=== PATIENT | male | born 2000 | race Caucasian/White ===

== ENCOUNTER 2022-08-12 07:33 | Emergency (ER) | payer BC, SELFPAY ==
[2022-08-12 07:49] VITALS: BP 130/88; PULSE 92; O2SAT 97
[2022-08-12 07:54] VITALS: BP 116/72; PULSE 89; RESP 18; TEMP 36.7; O2SAT 96; BMI 25.8
--- NOTE | 2022-08-12 08:07 | ED_ITS ---
HPI - General Adult General Chief complaint: Psychiatric Symptoms Stated complaint: SEC 12,CRISIS, COVID LIKE SX PER EMS Time Seen by Provider: 08/12/22 08:05 Source: patient, family (father) and EMS Mode of arrival: EMS Limitations: no limitations History of Present Illness HPI narrative: Patient is a 22 year old assigned male at with a history of GERD presenting to the emergency department today with difficulty sleeping, COVID exposure, and a GERD flare. Patient states that over the last 2 days he has been unable to sleep and has been feeling generally unwell. Patient states that he became very frustrated last night and had vague suicidal thoughts but now does not have them. Patient denies any dizziness, lightheadedness, abdominal pain, fever, chills, blurry vision, double vision, loss of vision, chest pain, difficulty breathing, shortness of breath, back pain, night sweats, pain with urination, increased urinary frequency, increased urinary urgency, blood in his urine or stool, syncope or a near syncopal episode, recent trauma or falls, bowel incontinence, bladder incontinence, bowel retention, bladder retention, or any other complaints at this time. Onset (ago): day(s) (2) Severity: mild Severity scale (1-10): 2 Relieving factors: none Exacerbating factors: none Associated symptoms: nausea/vomiting Treatments prior to arrival: none Related Data Previous Rx's Medication Instructions Recorded aluminum-mag hydroxide-simethicone 5 ml PO 5XD PRN indigestion #355 mL 08/12/22 200 mg-200 mg-20 mg/5 mL oral susp (Maalox Advanced) lidocaine HCl 2 % mucosal solution 1.2 ml PO BID PRN pain #100 mL 08/12/22 (Lidocaine Viscous) Allergies Allergy/AdvReac Type Severity Reaction Status Date / Time No Known Allergies Allergy Verified 08/12/22 08:42 [No Known Allergies*] Review of Systems Constitutional: Constitutional: Reports no additional constitutional complaints, Denies chills, Denies fever(s) and Denies night sweats Eyes: Eyes: Reports no additional eye complaints, Denies blurry vision, Denies change in vision, Denies diplopia, Denies eye discharge, Denies loss of vision and Denies eye pain ENT: Denies dizziness Cardiovascular: Cardiovascular: Reports no additional cardiovascular complaints, Denies chest pain, Denies lightheadedness, Denies Loss of Conscio usness and Denies dyspnea Respiratory: Respiratory: Reports no additional respiratory complaints, Reports cough and Denies dyspnea Gastrointestinal: Gastrointestinal: Reports no additional gastrointestinal complaints, Denies abdominal pain, Denies melena, Denies hematochezia, Denies change in bowel habits, Denies change in stool character and Reports nausea Genitourinary: Genitourinary: Reports no additional male genitourinary complai nts, Denies hematuria, Denies oliguria, Denies difficulty urinating, Denies dysuria, Denies urinary frequency, Denies urinary hesitancy, Denies urinary incontinence and Denies urinary urgency Musculoskeletal: Musculoskeletal: Reports no additional musculoskeletal complaints, Denies numbness and Denies tingling Neurologic: Denies dizziness, Denies loss of vision, Denies numbness and Denies tingling Psychiatric: Psychiatric: Reports no additional psychiatric complaints Endocrine: Endocrine: Reports no additional endocrine complaints Hematologic/Lymphatic: Hematologic/Lymphatic: Reports no additional hematologic/lymphatic complaints Allergic/Immunologic: Allergic/Immunologic: Reports no additional allergic/immunologic complaints PMFSH Past Medical History Attestation statement: The following information was validated with the patient. (all information validated with the patient's father) Source: old records reviewed, obtained from family (patient's father) and nursing notes reviewed Social History Social History Alcohol intake: never Smoked in Last 30 Days: No Use of substances other than those prescribed or required for medical reasons: Yes Substance Use Type: Marijuana Substance Use Frequency: Occasionally Advance Directives: No Advance Directives Information Provided: No Healthcare Proxy: No Guardian: No Physical Exam ED Vital Signs: Vital Signs - 24 hr 08/12/22 07:54 Temperature 98.1 F Pulse Rate 89 Respiratory Rate 18 Blood Pressure 116/72 Pulse Oximetry 96 Oxygen Delivery Method Room Air BMI result Body Mass Index 25.8 Const General: cooperative, no acute distress, alert and awake Nutritional Appearance: well nourished Orientation/consciousness: patient oriented x3 Limitations: no limitations HENMT Head: Yes normal to inspection and Yes atraumatic Ears: hearing grossly normal bilaterally and external ears normal General nose exam: Normal external nose present, no nasal discharge noted and no epistaxis Face and sinus: Yes normal facial exam, No abrasion and No laceration Mouth: Normal oral and palatal mucosa present, no drooling and no muffled voice Eyes General: appearance normal, both eyes and all related structures Periorbital: periorbital findings normal Eyelids: Yes eyelids normal Conjunctivae: conjunctivae normal Pupils: Equal, round and reactive pupils present EOM: EOMs intact bilaterally Neck Neck: Yes normal visual inspection, Yes full ROM and Yes no lymphadenopathy Chest Chest palpation & inspection: normal inspection of the chest Resp Effort & Inspection: normal respiratory effort and able to speak in complete sentences Auscultation: clear to auscultation bilaterally Cardio Rate: regular rate Rhythm: regular rhythm GI Inspection: Yes normal to inspection Palpation (GI): Soft to palpation, not firm, nontender, no guarding and not rigid Neuro General: patient oriented x3 and moves all extremities Cranial nerves: Yes Equal, round and reactive pupils present Cognition (Neuro): normal cognition Motor exam (neuro): 5/5 motor strength present throughout Sensory Exam: Normal double simultaneous stimulation for sensation Coordination: [id number] test normal Extrem General: Yes normal to inspection, Yes full ROM and Yes capillary refill normal Psych Appearance: grossly normal Mental Status: mental status grossly normal Affect: normal affect Attitude: cooperative Thought process: Normal thought process present Thought content: Normal thought content present Insight: Good insight present (Psych) Medications Administered Discontinued Medications Generic Name Dose Route Start Last Admin Trade Name Ale PRN Reason Stop Dose Admin Lidocaine HCl 15 ml 08/12/22 08:16 08/12/22 08:26 Lidocaine Hcl Viscous 2 % 15 Ml Solution MUCOUS MEM 08/12/22 08:17 15 ml ONCE ONE Administration Omeprazole 40 mg 08/12/22 08:16 08/12/22 08:26 Omeprazole 40 Mg Capsule.Dr VERAS 08/12/22 08:17 40 mg ONCE ONE Administration Medical Decision Making Medical Decision Making [facility] Narrative: Patient is a 22 year old assigned male at with a history of GERD presenting to the emergency department today with feeling generally unwell and resolved SI. Patient's physical exam was unremarkable. Patient's blood work was unremarkable. Patient's COVID-19 test was positive. I explained my physical exam findings as well as all test results to the patient and the patient's father. I answered all questions asked by the patient and the patient's father. Patient received PO Maalox and viscous lidocaine which he stated helped his GERD symptoms significantly. CARE team evaluated the patient and recommended discharge. I stressed the importance of the patient taking his medication as prescribed. I stressed the importance of the patient following up with his primary care provider and a GI specialist. I stressed the importance of the patient returning to the emergency department immediately if his symptoms were to worsen or if he were to develop any dizziness, shortness of breath, difficulty breathing, chest pain, blurry vision, loss of vision, nausea, vomiting, abdominal pain, fever, chills, back pain, or any other complaints. Patient and the patient's father verbalized agreement and understanding with this treatment plan and discharge. Differential Diagnosis Differential Diagnoses: The differential diagnosis associated with the presentation includes COVID-19, GERD Lab Data MDM Lab Attestation statement: I reviewed the patient's lab results. 08/12/22 08:57 08/12/22 08:57 Labs: Lab Results 08/12/22 08/12/22 08/12/22 Range/Units 08:17 08:17 08:57 WBC 4.5 L (4.8-10.8) X10*3/uL RBC 4.97 (4.60-5.80) X10*6/uL Hgb 15.6 (14.0-18.0) g/dl Hct 45.0 (42.0-52.0) % MCV 90.5 (80.0-98.0) fL MCH 31.4 (27.0-33.0) pg MCHC 34.7 (31.0-36.0) g/dl RDW 12.6 (11.0-16.0) % Plt Count 100 L (160-400) X10*3/uL MPV 12.3 (9.4-12.4) fL Immature Gran % (Auto) 0.4 (0.0-0.4) % Neut % (Auto) 68.0 (45-73) % Lymph % (Auto) 15.4 L (20-40) % [place] % (Auto) 15.8 H (2-11) % Eos % (Auto) 0.2 (0-4) % Baso % (Auto) 0.2 (0-2) % Lymph # (Auto) 0.7 L (1.2-4.9) X10*3/uL [place] # (Auto) 0.7 (0.1-1.2) X10*3/uL Eos # (Auto) 0.0 (0.0-0.4) X10*3/uL Baso # (Auto) 0.0 (0.0-0.2) X10*3/uL Abs Immat Gran (auto) 0.02 (0.00-0.03) X10*3/uL Absolute Neuts (auto) 3.0 (2.0-8.3) x10*3/uL Absolute Nucleated RBC 0.000 (0.0-0.012) X10*3/uL Nucleated RBC % (auto) 0.0 (0.0-0.2) /100WBC Sodium (135-145) mmol/L Potassium (3.3-5.1) mmol/L Chloride (96-108) mmol/L Carbon Dioxide (22-29) mmol/L Anion Gap (12-20) BUN (9-16) mg/dL Creatinine (0.5-1.4) mg/dL Estim Creat Clear Calc Estimated GFR Random Glucose (60-115) mg/dL Calcium (8.4-10.2) mg/dL Magnesium (1.6-2.6) mg/dL Total Bilirubin (0.0-1.0) mg/dL AST (5-37) U/L ALT (0-40) U/L Alkaline Phosphatase (39-117) U/L Total Protein (6.5-8.0) g/dL Albumin (3.5-5.0) g/dL Urine Opiates Screen Not Detected (Not Detect) Urine Fentanyl Screen Not Detected (Not Detect) Ur Barbiturates Screen Not Detected (Not Detect) Ur Phencyclidine Scrn Not Detected (Not Detect) Ur Amphetamines Screen Not Detected (Not Detect) U Benzodiazepines Scrn Not Detected (Not Detect) Urine Cocaine Screen Not Detected (Not Detect) U Marijuana (THC) Screen Not Detected (Not Detect) Influenza Type A (PCR) NEGATIVE (Negative) Influenza Type B (PCR) NEGATIVE (Negative) RSV RNA Qual (PCR) NEGATIVE (Negative) SARS-CoV-2 RNA (RT-PCR) POSITIVE A (Negative) 08/12/22 Range/Units 08:57 WBC (4.8-10.8) X10*3/uL RBC (4.60-5.80) X10*6/uL Hgb (14.0-18.0) g/dl Hct (42.0-52.0) % MCV (80.0-98.0) fL MCH (27.0-33.0) pg MCHC (31.0-36.0) g/dl RDW (11.0-16.0) % Plt Count (160-400) X10*3/uL MPV (9.4-12.4) fL Immature Gran % (Auto) (0.0-0.4) % Neut % (Auto) (45-73) % Lymph % (Auto) (20-40) % [place] % (Auto) (2-11) % Eos % (Auto) (0-4) % Baso % (Auto) (0-2) % Lymph # (Auto) (1.2-4.9) X10*3/uL [place] # (Auto) (0.1-1.2) X10*3/uL Eos # (Auto) (0.0-0.4) X10*3/uL Baso # (Auto) (0.0-0.2) X10*3/uL Abs Immat Gran (auto) (0.00-0.03) X10*3/uL Absolute Neuts (auto) (2.0-8.3) x10*3/uL Absolute Nucleated RBC (0.0-0.012) X10*3/uL Nucleated RBC % (auto) (0.0-0.2) /100WBC Sodium 137 (135-145) mmol/L Potassium 4.1 (3.3-5.1) mmol/L Chloride 100 (96-108) mmol/L Carbon Dioxide 32 H (22-29) mmol/L Anion Gap 9 L (12-20) BUN 7 L (9-16) mg/dL Creatinine 0.94 (0.5-1.4) mg/dL Estim Creat Clear Calc 109.3 Estimated GFR > 60 Random Glucose 96 (60-115) mg/dL Calcium 9.7 (8.4-10.2) mg/dL Magnesium 1.9 (1.6-2.6) mg/dL Total Bilirubin 0.6 (0.0-1.0) mg/dL AST 85 H (5-37) U/L ALT 106 H (0-40) U/L Alkaline Phosphatase 65 (39-117) U/L Total Protein 6.8 (6.5-8.0) g/dL Albumin 4.4 (3.5-5.0) g/dL Urine Opiates Screen (Not Detect) Urine Fentanyl Screen (Not Detect) Ur Barbiturates Screen (Not Detect) Ur Phencyclidine Scrn (Not Detect) Ur Amphetamines Screen (Not Detect) U Benzodiazepines Scrn (Not Detect) Urine Cocaine Screen (Not Detect) U Marijuana (THC) Screen (Not Detect) Influenza Type A (PCR) (Negative) Influenza Type B (PCR) (Negative) RSV RNA Qual (PCR) (Negative) SARS-CoV-2 RNA (RT-PCR) (Negative) Independent Historian Clinical information obtained from an independent historian. History obtained from or confirmed by: Parent (patient's father) and EMS Discharge Plan Discharge Clinical Impression: Chronic GERD, COVID-19 Patient Disposition: Home, Self-Care Instructions: Gastroesophageal Reflux Disease (ED), COVID-19 (Coronavirus Disease 2019) (ED) Additional Instructions: Follow up with your primary care provider and a GI specialist. Return to the emergency department immediately if your symptoms worsen or if you develop any dizziness, shortness of breath, difficulty breathing, chest pain, blurry vision, loss of vision, nausea, vomiting, abdominal pain, fever, chills, back pain, or any other complaints. Prescriptions: New alum-mag hydroxide-simeth [Maalox Advanced] 200-200-20 mg/5 mL suspension 5 ml PO 5XD PRN (Reason: indigestion) Qty: 355 0RF Rx Instructions: administer between meals and at bedtime lidocaine HCl [Lidocaine Viscous] 2 % solution 1.2 ml PO BID PRN (Reason: pain) Qty: 100 0RF Referrals: Goyo Desai MD [Primary Care Provider] - Interventions: [place]-Suicide Risk Severity Scale Last Done: 08/12/22 08:35 ED Discharge Assessment Last Done: 08/12/22 10:35 Discharge Date/Time: 08/12/22 10:43 Print Language: Mauritanian
[2022-08-12] MEDS: Lidocaine HCl Viscous 2 % 15 ML SOLUTION MUCOUS MEM (08:26)
[2022-08-12] MEDS: Omeprazole 40 MG CAPSULE.DR PO (08:26)
[2022-08-12 08:33] LABS: Amphetamine Screen Urine Not Detected (Not Detect); Barbiturates, Urine Not Detected (Not Detect); Benzodiazepines Screen Urine Not Detected (Not Detect); Cannabinoid Screen Urine Not Detected (Not Detect); Cocaine Screen Urine Not Detected (Not Detect); Fentanyl, urine Not Detected (Not Detect); Opiate Screen Urine Not Detected (Not Detect); Phencyclidine Screen Urine Not Detected (Not Detect)
[2022-08-12 09:03] LABS: MANUAL DIFF FLAG NO
[2022-08-12 09:06] LABS: Influenza A PCR NEGATIVE (Negative); Influenza B PCR NEGATIVE (Negative); Resp Syncy Virus RNA Qual PCR NEGATIVE (Negative); SARS COV2 PCR INHOUSE POSITIVE (Negative)
[2022-08-12 09:07] LABS: Basophils Percent Auto 0.2 % (0-2); Eosinophils Percent Auto 0.2 % (0-4); Hemoglobin 15.6 g/dl (14.0-18.0); Imm Gran Abs Auto 0.02 X10*3/uL (0.00-0.03); Imm Gran Pct Auto 0.4 % (0.0-0.4); Lymphocytes Absolute Auto 0.7 X10*3/uL (1.2-4.9); Lymphocytes Percent Auto 15.4 % (20-40); Mean Corpuscular HGB Conc 34.7 g/dl (31.0-36.0); Mean Corpuscular Hemoglobin 31.4 pg (27.0-33.0); Mean Corpuscular Volume 90.5 fL (80.0-98.0); Mean Platelet Volume 12.3 fL (9.4-12.4); Monocytes Absolute Auto 0.7 X10*3/uL (0.1-1.2); Monocytes Percent Auto 15.8 % (2-11); Platelet Count 100 X10*3/uL (160-400); Red Blood Count 4.97 X10*6/uL (4.60-5.80); Red Cell Distribution Width 12.6 % (11.0-16.0); White Blood Count 4.5 X10*3/uL (4.8-10.8)
[2022-08-12 09:22] LABS: Alanine Aminotransferase 106 U/L (0-40); Albumin Level 4.4 g/dL (3.5-5.0); Alkaline Phosphatase 65 U/L (39-117); Anion Gap 9 (12-20); Aspartate Amino Transferase 85 U/L (5-37); Bilirubin Total 0.6 mg/dL (0.0-1.0); Blood Urea Nitrogen 7 mg/dL (9-16); Calcium 9.7 mg/dL (8.4-10.2); Carbon Dioxide 32 mmol/L (22-29); Chloride 100 mmol/L (96-108); Creatinine Clr Calc Pharmacy 109.3; Estimated Glomerular Filt Rate > 60; Glucose Random 96 mg/dL (60-115); Magnesium 1.9 mg/dL (1.6-2.6); Potassium 4.1 mmol/L (3.3-5.1); Sodium 137 mmol/L (135-145); Total Protein 6.8 g/dL (6.5-8.0)
== END 2022-08-12 10:43 | disposition home or self-care (01) ==
PROVIDERS: Physician Assistant Medical; Emergency Provider Student in an Organized Health Care Education/Training Program; PCP Internal Medicine
DX: U07.1 COVID-19 (principal); K21.9 Gastro-esophageal reflux disease without esophagitis; R45.851 Suicidal ideations; F12.90 Cannabis use, unspecified, uncomplicated; Z79.899 Other long term (current) drug therapy
CPT/HCPCS: 0241U; 36415; 80053; 80307; 83735; 85025; 99284; S9485

== ENCOUNTER 2023-10-27 10:50 | Inpatient (IN) | payer BC, SELFPAY ==
[2023-10-27 11:13] VITALS: BP 131/83; PULSE 98; RESP 18; TEMP 36.3; O2SAT 99; BMI 26.6
--- NOTE | 2023-10-27 11:14 | ED_ITS ---
HPI - General Adult General Chief complaint: Psychiatric Symptoms Stated complaint: Med refill Time Seen by Provider: 10/27/23 12:02 Source: patient Mode of arrival: ambulatory Limitations: no limitations History of Present Illness HPI narrative: 23 year old male with PMH: anxiety on ativan but taking it too much presents to the ER with panic attacks shaking and muscle spasms for 48 hours. Had called his PCP to get early refill and was denied. Now with passive SI. He states he can't sleep or eat. His father is at the bedside and states this has been a problem for some time. He is using ativan for anxiety and to sleep. Related Data Previous Rx's Medication Instructions Recorded aluminum-mag hydroxide-simethicone 5 ml PO 5XD PRN indigestion #355 mL 08/12/22 200 mg-200 mg-20 mg/5 mL oral susp (Maalox Advanced) lidocaine HCl 2 % mucosal solution 1.2 ml PO BID PRN pain #100 mL 08/12/22 (Lidocaine Viscous) Allergies Allergy/AdvReac Type Severity Reaction Status Date / Time No Known Allergies Allergy Verified 10/27/23 11:12 [No Known Allergies*] Review of Systems 2 Review of Systems: Review of systems: General: Insomnia Patient denies any fever chills recent illness or falls Musculoskeletal: Denies back pain or body aches or other injuries HEENT: denies headache, runny nose, ear pain Respiratory: denies shortness of breath, cough Cardiovascular: no chest pain or palpitations : denies dysuria, frequency Abdomen: no nausea vomiting he has epigastric abdominal pain Extremities: no swelling, no pain Skin: no diaphoresis Yes all other systems are reviewed and are negative [facility] Social History Social History Alcohol intake: never Smoked in Last 30 Days: No Use of substances other than those prescribed or required for medical reasons: Yes Substance Use Type: Marijuana Substance Use Frequency: Chronic Longstanding Last Used Substance: Hours (ago) Any prior treatment program specific to substance use: No Advance Directives: No Physical Exam ED Vital Signs: Vital Signs - 24 hr 10/27/23 11:13 10/27/23 11:39 Temperature 97.3 F Pulse Rate 98 Respiratory Rate 18 14 Blood Pressure 131/83 Pulse Oximetry 99 BMI result Body Mass Index 26.6 General: Well-appearing well-nourished in no signs of distress HEENT: Normocephalic atraumatic Neck: No signs of JVD, no masses no tenderness or lymphadenopathy Cardiovascular: Regular rate and rhythm Respiratory: Clear to auscultation bilaterally Abdomen: Soft nontender no masses green discoloration to upper abdomen as he has been rubbing vaporub to the area. Extremities: Normal pedal pulses no signs of edema Skin: Dry warm no rashes Back: No tenderness full ROM Course Course Course Narrative: RME:?23 yo male hx of anxiety here requesting refill of lorazepam 1mg qd at night. last filled on 10/01/22. states he was ill over the last month and has been taking more than prescribed. he has been out of this for approx 48 hours. he contacted his prescriber for an emergency refill and they denied his request as it is too early to fill the script. he endorses insomnia, anxiety, tremors and decreased appetite. reports passive SI without plan. denies HI. plan for med clearance and care team eval. Full HPI, ROS and PE to be performed by the primary ED provider. Reevaluation(s) Reevaluation #1: 1256 labs are all normal patient is well patient seen by crisis Medications Administered Discontinued Medications Generic Name Dose Route Start Last Admin Trade Name Freq PRN Reason Stop Dose Admin Al Hydroxide/Mg Hydroxide 30 ml 10/27/23 12:27 10/27/23 12:43 Magnesium Hydrox/Alum Hydrox 30 Ml Oral.Susp PO 10/27/23 12:28 30 ml ONCE ONE Administration Famotidine 20 mg 10/27/23 12:27 10/27/23 12:43 Famotidine 20 Mg Tablet PO 10/27/23 12:28 20 mg ONCE ONE Administration Lorazepam 0.5 mg 10/27/23 12:27 10/27/23 12:43 Lorazepam 0.5 Mg Tablet PO 10/27/23 12:28 0.5 mg ONCE ONE Administration Medical Decision Making Medical Decision Making [facility] Narrative: I will have the patient seen by crisis and check general labs. Differential Diagnosis Differential Diagnoses: The differential diagnosis associated with the presentation includes anxiety, benzodiazapine abuse, SI Lab Data [facility] Lab Attestation statement: I reviewed the patient's lab results. 10/27/23 11:30 10/27/23 11:30 Labs: Lab Results 10/27/23 10/27/23 Range/Units 11:30 12:24 WBC 5.3 (4.8-10.8) X10*3/uL RBC 5.00 (4.60-5.80) X10*6/uL Hgb 15.6 (14.0-18.0) g/dl Hct 43.4 (42.0-52.0) % MCV 86.8 (80.0-98.0) fL MCH 31.2 (27.0-33.0) pg MCHC 35.9 (31.0-36.0) g/dl RDW 12.0 (11.0-16.0) % Plt Count 155 L D (160-400) X10*3/uL MPV 11.4 (9.4-12.4) fL Immature Gran % (Auto) 0.2 (0.0-0.4) % Neut % (Auto) 74.7 H (45-73) % Lymph % (Auto) 17.4 L (20-40) % [place] % (Auto) 6.6 (2-11) % Eos % (Auto) 0.9 (0-4) % Baso % (Auto) 0.2 (0-2) % Lymph # (Auto) 0.9 L (1.2-4.9) X10*3/uL [place] # (Auto) 0.4 (0.1-1.2) X10*3/uL Eos # (Auto) 0.1 (0.0-0.4) X10*3/uL Baso # (Auto) 0.0 (0.0-0.2) X10*3/uL Abs Immat Gran (auto) 0.01 (0.00-0.03) X10*3/uL Absolute Neuts (auto) 4.0 (2.0-8.3) x10*3/uL Absolute Nucleated RBC 0.000 (0.0-0.012) X10*3/uL Nucleated RBC % (auto) 0.0 (0.0-0.2) /100WBC Sodium 140 (135-145) mmol/L Potassium 4.2 (3.3-5.1) mmol/L Chloride 101 (96-108) mmol/L Carbon Dioxide 25 (22-29) mmol/L Anion Gap 18 (12-20) BUN 10 (9-16) mg/dL Creatinine 1.01 (0.5-1.4) mg/dL Estim Creat Clear Calc 97.2 Estimated GFR > 60 Random Glucose 82 (60-115) mg/dL Calcium 10.1 (8.4-10.2) mg/dL Magnesium 2.1 (1.6-2.6) mg/dL Total Bilirubin 1.3 H (0.0-1.0) mg/dL AST 22 (5-37) U/L ALT 25 (0-40) U/L Alkaline Phosphatase 54 (39-117) U/L Total Protein 8.0 (6.5-8.0) g/dL Albumin 4.8 (3.5-5.0) g/dL Lipase 29 (8-78) U/L Urine Color Yellow Urine Appearance Clear Urine pH 5.5 (5.0-9.0) Ur Specific [place] 1.025 (1.005-1.025) Urine Protein Trace (Neg-Trace) mg/dL Urine Glucose (UA) Negative (Negative) mg/dL Urine Ketones >=160 (Negative) mg/dL Urine Blood Trace H (Negative) Urine Nitrite Negative (Negative) Ur Leukocyte Esterase Negative (Negative) Urine RBC 0-2 (0-2) /HPF Urine WBC 0-5 (0-5) /HPF Ur Squamous Epith Cells 0-2 (0-2) /HPF Urine Bacteria None Seen (None Seen) Hyaline Casts 0-2 (0-2) /LPF Urine Opiates Screen Not Detected (Not Detect) Urine Fentanyl Screen Not Detected (Not Detect) Ur Barbiturates Screen Not Detected (Not Detect) Ur Phencyclidine Scrn Not Detected (Not Detect) Ur Amphetamines Screen Not Detected (Not Detect) U Benzodiazepines Scrn Not Detected (Not Detect) Urine Cocaine Screen Not Detected (Not Detect) U Marijuana (THC) Screen POSITIVE H (Not Detect) Ethyl Alcohol < 10 mg/dL Discharge Plan Discharge Clinical Impression: Suicidal ideation, Acute anxiety Patient Disposition: Still a Patient Prescriptions: No Action alum-mag hydroxide-simeth [Maalox Advanced] 200-200-20 mg/5 mL suspension 5 ml PO 5XD PRN (Reason: indigestion) Qty: 355 0RF Rx Instructions: administer between meals and at bedtime lidocaine HCl [Lidocaine Viscous] 2 % solution 1.2 ml PO BID PRN (Reason: pain) Qty: 100 0RF Interventions: [place]-Suicide Risk Severity Scale Last Done: 10/27/23 11:39
--- NOTE | 2023-10-27 11:16 | ECG_ITS ---
Test Reason : MEEDICATION WITHDRAWL Blood Pressure : / mmHG Vent. Rate : 076 BPM Atrial Rate : 076 BPM P-R Int : 140 ms QRS Dur : 084 ms QT Int : 394 ms P-R-T Axes : 034 073 073 degrees QTc Int : 443 ms Normal sinus rhythm Normal ECG No previous ECGs available Referred By: Bess Sands Electronically Signed By:Yovany Ceja
[2023-10-27 11:36] LABS: MANUAL DIFF FLAG NO
[2023-10-27 11:39] VITALS: RESP 14
[2023-10-27 11:46] LABS: Basophils Percent Auto 0.2 % (0-2); Eosinophils Absolute Auto 0.1 X10*3/uL (0.0-0.4); Eosinophils Percent Auto 0.9 % (0-4); Hematocrit 43.4 % (42.0-52.0); Hemoglobin 15.6 g/dl (14.0-18.0); Imm Gran Abs Auto 0.01 X10*3/uL (0.00-0.03); Imm Gran Pct Auto 0.2 % (0.0-0.4); Lymphocytes Absolute Auto 0.9 X10*3/uL (1.2-4.9); Lymphocytes Percent Auto 17.4 % (20-40); Mean Corpuscular HGB Conc 35.9 g/dl (31.0-36.0); Mean Corpuscular Hemoglobin 31.2 pg (27.0-33.0); Mean Corpuscular Volume 86.8 fL (80.0-98.0); Mean Platelet Volume 11.4 fL (9.4-12.4); Monocytes Absolute Auto 0.4 X10*3/uL (0.1-1.2); Monocytes Percent Auto 6.6 % (2-11); Neutrophils Percent Auto 74.7 % (45-73); Platelet Count 155 X10*3/uL (160-400); White Blood Count 5.3 X10*3/uL (4.8-10.8)
[2023-10-27 11:53] LABS: Alanine Aminotransferase 25 U/L (0-40); Albumin Level 4.8 g/dL (3.5-5.0); Alkaline Phosphatase 54 U/L (39-117); Anion Gap 18 (12-20); Aspartate Amino Transferase 22 U/L (5-37); Bilirubin Total 1.3 mg/dL (0.0-1.0); Blood Urea Nitrogen 10 mg/dL (9-16); Calcium 10.1 mg/dL (8.4-10.2); Carbon Dioxide 25 mmol/L (22-29); Chloride 101 mmol/L (96-108); Creatinine Clr Calc Pharmacy 97.2; Estimated Glomerular Filt Rate > 60; Ethanol < 10 mg/dL; Glucose Random 82 mg/dL (60-115); Lipase 29 U/L (8-78); Magnesium 2.1 mg/dL (1.6-2.6); Potassium 4.2 mmol/L (3.3-5.1); Sodium 140 mmol/L (135-145)
[2023-10-27 12:33] LABS: Appearance Urine Clear; Color Urine Yellow; Glucose Urine UA Negative (Negative); Leukocyte Esterase Urine Negative (Negative); Nitrite Urine Negative (Negative); PH 5.5 (5.0-9.0); Specific Gravity - Urine 1.025 (1.005-1.025); UMIC TRIGGER UACC YES; Urine Blood Trace (Negative); Urine Ketones >=160 mg/dL (Negative); Urine Protein Trace mg/dL (Neg-Trace)
[2023-10-27 12:39] LABS: Amphetamine Screen Urine Not Detected (Not Detect); Barbiturates, Urine Not Detected (Not Detect); Benzodiazepines Screen Urine Not Detected (Not Detect); Cannabinoid Screen Urine POSITIVE (Not Detect); Cocaine Screen Urine Not Detected (Not Detect); Fentanyl, urine Not Detected (Not Detect); Opiate Screen Urine Not Detected (Not Detect); Phencyclidine Screen Urine Not Detected (Not Detect)
[2023-10-27] MEDS: Magnesium Hydrox/Alum Hydrox 30 ML ORAL.SUSP PO ×2 (12:43→21:25)
[2023-10-27] MEDS: LORazepam 0.5 MG TABLET PO ×3 (12:43→22:28)
[2023-10-27] MEDS: Famotidine 20 MG TABLET PO (12:43)
[2023-10-27 12:46] LABS: Bacteria Urine None Seen (None Seen); Hyaline Casts Urine 0-2 /LPF (0-2); RBC Urine 0-2 /HPF (0-2); Squamous Epithelial Cell Urine 0-2 /HPF (0-2); WBC Urine 0-5 /HPF (0-5)
--- NOTE | 2023-10-27 13:07 | PC.NURSE ---
RE; med rec medication rec completed by this RN with assistance from mother and patient. Pt verified all medications, compliant with regime. Pts mother states he has not be taking the lunesta because they feel it does not help
[2023-10-27] MEDS: Ondansetron ODT 4 MG TAB.RAPDIS TRANSLINGU (17:57)
--- NOTE | 2023-10-27 18:35 | PC.NURSE ---
Patient requesting something like Ensure to supplement his dinner. He reports that recently he hasnt been able to tolerate many solid foods without getting nauseous due to his anxiety. Pt provided with clear liquid ensure for dinner
[2023-10-27 18:43] LABS: COVID-19 Test Positive (Negative); IDNOW Serial# 08D9AD1C
[2023-10-27 19:00] VITALS: BP 122/82; PULSE 96; RESP 18; TEMP 36.7; O2SAT 97
[2023-10-27] MEDS: Ondansetron ODT 4 MG TAB.RAPDIS 8 MG TRANSLINGU (20:37)
[2023-10-27] MEDS: hydrOXYzine HCL 25 MG TABLET PO (21:49)
--- NOTE | 2023-10-27 23:55 | PC.ADMIT ---
Thomas arrived to the unit at 185, sharp checks done by physician underwriter and female RN, skin appear to be intact, upon approach he was calm and pleasant, when asked how he felt stated Anxious. Thomas reports that he was not feeling Well since last , I called out of work. He reports that he gets Really anxious just thinking about getting sick, Especially with my stomach, I can't handle getting sick. He reports that due the an increase in his anxiety he started taking More Ativan that prescribed and I ran out, he reiterates I have never done this before, this is the first time. He reports that he reached out to his provider I thought he was going to fill it, but he didn't. He reports that he started to experience Withdrawals I was feeling shaky, I was having racing thoughts about hurting myself, I wouldn't actually do it, he reiterated They're just thoughts. He reports that his anxiety is currently a 10/10, I feel a little depressed, When asked if he was having thoughts to hurt self stated No, verbalized to look for staff if thoughts occur. Thomas tested positive for covid prior to coming on the unit, he is currently on 15 minute checks for safety.
[2023-10-28] MEDS: Ondansetron ODT 4 MG TAB.RAPDIS 8 MG TRANSLINGU (03:35)
[2023-10-28] MEDS: Omeprazole 20 MG CAPSULE.DR PO (06:15)
[2023-10-28 08:50] VITALS: BP 127/66; PULSE 68; RESP 18; TEMP 36.5; O2SAT 99
[2023-10-28] MEDS: Escitalopram Oxalate 20 MG TABLET PO (08:53)
[2023-10-28] MEDS: Gabapentin 300 MG CAPSULE PO (08:53)
[2023-10-28] MEDS: LORazepam 0.5 MG TABLET PO ×2 (08:53→14:44)
[2023-10-28 09:22] LABS: Alanine Aminotransferase 24 U/L (0-40); Albumin Level 5.2 g/dL (3.5-5.0); Alkaline Phosphatase 57 U/L (39-117); Anion Gap 19 (12-20); Aspartate Amino Transferase 20 U/L (5-37); Bilirubin Total 1.2 mg/dL (0.0-1.0); Blood Urea Nitrogen 11 mg/dL (9-16); Calcium 10.5 mg/dL (8.4-10.2); Carbon Dioxide 25 mmol/L (22-29); Chloride 100 mmol/L (96-108); Cholesterol 143 mg/dL (<200); Creatinine Clr Calc Pharmacy 93.5; Estimated Glomerular Filt Rate > 60; Glucose Fasting 98 mg/dL (60-99); HDL Cholesterol 31 mg/dL (>40); LDL Cholesterol Calculated 91 mg/dL (<100); Potassium 3.4 mmol/L (3.3-5.1); Sodium 141 mmol/L (135-145); Total Protein 8.7 g/dL (6.5-8.0); Triglycerides 105 mg/dL (<150)
--- NOTE | 2023-10-28 10:03 | HO.PSYADMNOT ---
HPI Date of Service: 10/28/23 Chief Complaint: Crisis Sources of Information: patient interviewed, chart reviewed and crisis/core team assessment reviewed HPI Narrative: 23 yo male w/ hx of anxiety, depression, insomnia presents for worsening anxiety with vague SI in face of covid infection and running out of ativan. Pt reports hx of anxiety moderately well controlled with Citalopram, however he says when he got Covid infection, he became exceedingly anxious and for about 4 days he used more than allotted Ativan script and ran out; he prescriber would not fill early and with anxiety, insomnia, covid and some withdrawal, his anxiety became overwhelming and he devoloped SI, though report only passively. Pt prescribed Ativan 1mg BID, which he mostly uses for insomnia; for 4 day, he took 3mg total daily dose which caused him to run out. Denies any Etoh or drug use other than cannabis. Pt endores ongoing depression, worse past 2 months with increased w/drawal from friends, diminshed interest, lower energy, concentration, intermittent passive sI and increased sleep. Denies trauma hx; denies hx of manic behaviors/episodes. Past Psychiatric History: no past psych admissions chronic insomnia with failed med trials of Trazodone, clonidine, Ambien, Lunesta Medical Evaluation Reviewed: Yes [facility] [place] Medical History (Updated 10/29/23 @ 09:44 by Pedro Dumont MD) Anxiety disorder MDD (major depressive disorder), recurrent episode, moderate Family History: maternal uncle depression/suicide Social History: good employment hx; employed until recently, quitting after got COVID and missing work for a week graduated HS Associates degree lives at home w/ mom Substance History: cannabis only Trauma History: denies Diagnostics Vital Signs (24Hr): Vital Signs - 24 hr 10/27/23 11:13 10/27/23 11:39 10/27/23 19:00 Temperature 97.3 F 98.1 F Pulse Rate 98 96 Respiratory Rate 18 14 18 Blood Pressure 131/83 122/82 Pulse Oximetry 99 97 Oxygen Delivery Method Room Air 10/28/23 08:50 Temperature 97.7 F Pulse Rate 68 Respiratory Rate 18 Blood Pressure 127/66 Pulse Oximetry 99 Oxygen Delivery Method Room Air BMI result Body Mass Index 26.6 Labs 10/27/23 11:30 10/28/23 08:53 Labs: Laboratory Results - last 48 hr 10/27/23 10/27/23 10/27/23 11:30 12:24 18:22 WBC 5.3 RBC 5.00 Hgb 15.6 Hct 43.4 MCV 86.8 MCH 31.2 MCHC 35.9 RDW 12.0 Plt Count 155 L D MPV 11.4 Immature Gran % (Auto) 0.2 Neut % (Auto) 74.7 H Lymph % (Auto) 17.4 L [place] % (Auto) 6.6 Eos % (Auto) 0.9 Baso % (Auto) 0.2 Lymph # (Auto) 0.9 L [place] # (Auto) 0.4 Eos # (Auto) 0.1 Baso # (Auto) 0.0 Abs Immat Gran (auto) 0.01 Absolute Neuts (auto) 4.0 Absolute Nucleated RBC 0.000 Nucleated RBC % (auto) 0.0 Sodium 140 Potassium 4.2 Chloride 101 Carbon Dioxide 25 Anion Gap 18 BUN 10 Creatinine 1.01 Estim Creat Clear Calc 97.2 Estimated GFR > 60 Random Glucose 82 Fasting Glucose Calcium 10.1 Magnesium 2.1 Total Bilirubin 1.3 H AST 22 ALT 25 Alkaline Phosphatase 54 Total Protein 8.0 Albumin 4.8 Triglycerides Cholesterol LDL Cholesterol, Calc HDL Cholesterol Lipase 29 Urine Color Yellow Urine Appearance Clear Urine pH 5.5 Ur Specific [place] 1.025 Urine Protein Trace Urine Glucose (UA) Negative Urine Ketones >=160 Urine Blood Trace H Urine Nitrite Negative Ur Leukocyte Esterase Negative Urine RBC 0-2 Urine WBC 0-5 Ur Squamous Epith Cells 0-2 Urine Bacteria None Seen Hyaline Casts 0-2 Urine Opiates Screen Not Detected Urine Fentanyl Screen Not Detected Ur Barbiturates Screen Not Detected Ur Phencyclidine Scrn Not Detected Ur Amphetamines Screen Not Detected U Benzodiazepines Scrn Not Detected Urine Cocaine Screen Not Detected U Marijuana (THC) Screen POSITIVE H Ethyl Alcohol < 10 COVID-19 (AAYUSH) Positive A COVID-19 Clin Com See Note 10/28/23 08:53 WBC RBC Hgb Hct MCV MCH MCHC RDW Plt Count MPV Immature Gran % (Auto) Neut % (Auto) Lymph % (Auto) [place] % (Auto) Eos % (Auto) Baso % (Auto) Lymph # (Auto) [place] # (Auto) Eos # (Auto) Baso # (Auto) Abs Immat Gran (auto) Absolute Neuts (auto) Absolute Nucleated RBC Nucleated RBC % (auto) Sodium 141 Potassium 3.4 Chloride 100 Carbon Dioxide 25 Anion Gap 19 BUN 11 Creatinine 1.05 Estim Creat Clear Calc 93.5 Estimated GFR > 60 Random Glucose Fasting Glucose 98 Calcium 10.5 H Magnesium Total Bilirubin 1.2 H AST 20 ALT 24 Alkaline Phosphatase 57 Total Protein 8.7 H Albumin 5.2 H Triglycerides 105 Cholesterol 143 LDL Cholesterol, Calc 91 HDL Cholesterol 31 L Lipase Urine Color Urine Appearance Urine pH Ur Specific [place] Urine Protein Urine Glucose (UA) Urine Ketones Urine Blood Urine Nitrite Ur Leukocyte Esterase Urine RBC Urine WBC Ur Squamous Epith Cells Urine Bacteria Hyaline Casts Urine Opiates Screen Urine Fentanyl Screen Ur Barbiturates Screen Ur Phencyclidine Scrn Ur Amphetamines Screen U Benzodiazepines Scrn Urine Cocaine Screen U Marijuana (THC) Screen Ethyl Alcohol COVID-19 (AAYUSH) COVID-19 Clin Com Meds/Allergies Meds Home Medications Medication Instructions Recorded Confirmed Type citalopram 40 mg tablet 40 mg PO DAILY 10/27/23 10/27/23 History gabapentin 300 mg capsule 300 mg PO DAILY 10/27/23 10/27/23 History lorazepam 1 mg tablet 1 mg PO BID 10/27/23 10/27/23 History omeprazole 20 mg capsule,delayed 20 mg PO DAILY 10/27/23 10/27/23 History release Allergies Allergies Allergy/AdvReac Type Severity Reaction Status Date / Time lactose AdvReac Gastrointestinal Verified 10/27/23 18:08 Upset Mental Status Exam Mental Status Exam Narrative: Pt is alert and oriented; behavior is cooperative, friendly and calm; patient is not in distress; dressed in casual attire with unkempt hair but adequate hygiene; mood is described as anxious and affect congruent; eye contact appropriate; Speech is normal rate, volume and prosody and not pressured; no psychomotor agitation/retardation present; thought process is organized and goal directed; Thought content is on tx; otherwise pertinent to relevant topics and without any delusional content, paranoid ideations or grandiosity; denies any SI/HI. There is no evidence of perceptual disturbance. Patients insight and judgment appear intact. Assessment & Plan Assessment & Plan (1) MDD (major depressive disorder), recurrent episode, moderate: Status: Acute Code(s): F33.1 - Major depressive disorder, recurrent, moderate (2) Anxiety disorder: Status: Acute Code(s): F41.9 - Anxiety disorder, unspecified (3) COVID-19: Status: Acute Code(s): U07.1 - COVID-19 Plan 23 yo male w/ hx of anxiety, depression, insomnia presents for worsening anxiety with vague SI in face of covid infection and running out of ativan. Pt reports hx of anxiety moderately well controlled with Citalopram, however he says when he got Covid infection, he became exceedingly anxious and for about 4 days he used more than allotted Ativan script and ran out; he prescriber would not fill early and with anxiety, insomnia, covid and some withdrawal, his anxiety became overwhelming and he devoloped SI, though report only passively. Pt prescribed Ativan 1mg BID, which he mostly uses for insomnia; for 4 day, he took 3mg total daily dose which caused him to run out. Denies any Etoh or drug use other than cannabis. Pt endorses ongoing depression, worse past 2 months with increased w/drawal from friends, diminshed interest, lower energy, concentration, intermittent passive sI and increased sleep. Denies trauma hx; denies hx of manic behaviors/episodes. Formulation: anxiety well enough treated with Citalopram, but depression remains a problem. Mostly uses ativan for insomnia only (with failed med trials of Trazodone, clonidine, Ambien, Lunesta). Reviewed med options and patient has never tried Mirtazpine or Seroquel for sleep; reviewed risks/side-effects and pt agrees to try Mirtazapine which can help treat both depression and insomnia. Per patient report, it does not seem that he is actively engaged in Ativan abuse and only used more than normal allotment for 4 days due to exacerbated anxiety (similar event happened a year ago when he got covid; otherwise, never runs out of ativan). Since only 4 days of only ativan 3mg, pt's w/drawal unlikely to be problematic; will do ativan taper but no need for CIwA PLAN: cv q15min checks aTivan 1mg TID; will taper START Mirtazapine 7.5mg qhs (will consider seroquel if need be) Continue Escitalpram 20mg (in place of Citalopram 40mg) Patient educated on: diagnosis, medication risk/benefits and substance abuse Informed Consent: understands Reason for continued inpatient stay Substantial Risk for: rapid decompensation Statement Statement: I have reviewed the history and physical and performed a pertinent examination on my patient. No changes have occurred unless specified. If the History and Physical was not performed prior to admission, the Hospitalist's service will be consulted for completing the admission physical. Time Spent With Patient Time: Total time managing care of this patient today ____ minutes.
[2023-10-28] MEDS: LORazepam 1 MG TABLET PO ×2 (15:19→21:54)
[2023-10-28 18:00] VITALS: BP 127/73; PULSE 80; RESP 18; TEMP 36.6; O2SAT 97
[2023-10-28] MEDS: Mirtazapine 7.5 MG TABLET PO (21:54)
[2023-10-29 08:00] VITALS: BP 125/74; PULSE 108; RESP 16; TEMP 36.4; O2SAT 99
[2023-10-29] MEDS: Omeprazole 20 MG CAPSULE.DR PO (09:57)
[2023-10-29] MEDS: Gabapentin 300 MG CAPSULE PO (09:58)
[2023-10-29] MEDS: LORazepam 1 MG TABLET PO ×3 (09:58→21:13)
[2023-10-29] MEDS: Escitalopram Oxalate 20 MG TABLET PO (09:58)
--- NOTE | 2023-10-29 10:42 | P.PNPSI_ITS ---
Subjective Subjective Date of Service: 10/29/23 Reason For Visit: Crisis Subjective Notes: Conditional Voluntary Medical Problems Affecting Mental Status: Yes (? s/p covid- ativan withdrawl from xs taking) Interim History: 23 yo Feels he is sleeping better without xs ativan he had been taking at home- however also feels in day like withdrawl- when he wakes up co nausea dec apt- was able to eat this am but now feels nauseated again and wanted zofran Medication Compliance: Yes Side effects from medications: Yes (nausea) Attending Groups: No (on covid restrictions right now) Review of Systems Acute medical concerns: Yes monitoring for withdrawl- 5 day isolating from testing positive again for covid Medical Review of Systems: unchanged Mental Status Exam Mental Status Exam Patient Appearance: Well Grooomed and Appropriate Patient Orientation: Person, Place, Time and Situation Level of Consciousness: Awake and Appropriate Patient Behavior: Appropriate and Cooperative Mood Description: Calm Affect Description: Apprehensive Patient Cognition Impaired: No Ability to Follow Directions: Good Speech Pattern: Clear Hallucinations: None Delusions: Not Present Thought Process: Intact and Goal Oriented Thought Content: positive for Intact Depressive Symptoms: Increased Anxiety, Increased Irritability and Unexplained Stomach Pain (nausea- dec apt) Abnormal Motor Activity Signs and Symptoms: Restlessness (but couped up in room on quarantine) Judgement: Fair Diagnostics Vital Signs (24Hr): Vital Signs - 24 hr 10/28/23 18:00 Temperature 97.8 F Pulse Rate 80 Respiratory Rate 18 Blood Pressure 127/73 Pulse Oximetry 97 Oxygen Delivery Method Room Air BMI result Body Mass Index 26.6 Labs 10/27/23 11:30 10/28/23 08:53 Labs: Laboratory Results - last 48 hr 10/27/23 10/27/23 10/27/23 11:30 12:24 18:22 WBC 5.3 RBC 5.00 Hgb 15.6 Hct 43.4 MCV 86.8 MCH 31.2 MCHC 35.9 RDW 12.0 Plt Count 155 L D MPV 11.4 Immature Gran % (Auto) 0.2 Neut % (Auto) 74.7 H Lymph % (Auto) 17.4 L [place] % (Auto) 6.6 Eos % (Auto) 0.9 Baso % (Auto) 0.2 Lymph # (Auto) 0.9 L [place] # (Auto) 0.4 Eos # (Auto) 0.1 Baso # (Auto) 0.0 Abs Immat Gran (auto) 0.01 Absolute Neuts (auto) 4.0 Absolute Nucleated RBC 0.000 Nucleated RBC % (auto) 0.0 Sodium 140 Potassium 4.2 Chloride 101 Carbon Dioxide 25 Anion Gap 18 BUN 10 Creatinine 1.01 Estim Creat Clear Calc 97.2 Estimated GFR > 60 Random Glucose 82 Fasting Glucose Calcium 10.1 Magnesium 2.1 Total Bilirubin 1.3 H AST 22 ALT 25 Alkaline Phosphatase 54 Total Protein 8.0 Albumin 4.8 Triglycerides Cholesterol LDL Cholesterol, Calc HDL Cholesterol Lipase 29 Urine Color Yellow Urine Appearance Clear Urine pH 5.5 Ur Specific [place] 1.025 Urine Protein Trace Urine Glucose (UA) Negative Urine Ketones >=160 Urine Blood Trace H Urine Nitrite Negative Ur Leukocyte Esterase Negative Urine RBC 0-2 Urine WBC 0-5 Ur Squamous Epith Cells 0-2 Urine Bacteria None Seen Hyaline Casts 0-2 Urine Opiates Screen Not Detected Urine Fentanyl Screen Not Detected Ur Barbiturates Screen Not Detected Ur Phencyclidine Scrn Not Detected Ur Amphetamines Screen Not Detected U Benzodiazepines Scrn Not Detected Urine Cocaine Screen Not Detected U Marijuana (THC) Screen POSITIVE H Ethyl Alcohol < 10 COVID-19 (AAYUSH) Positive A COVID-19 Clin Com See Note 10/28/23 08:53 WBC RBC Hgb Hct MCV MCH MCHC RDW Plt Count MPV Immature Gran % (Auto) Neut % (Auto) Lymph % (Auto) [place] % (Auto) Eos % (Auto) Baso % (Auto) Lymph # (Auto) [place] # (Auto) Eos # (Auto) Baso # (Auto) Abs Immat Gran (auto) Absolute Neuts (auto) Absolute Nucleated RBC Nucleated RBC % (auto) Sodium 141 Potassium 3.4 Chloride 100 Carbon Dioxide 25 Anion Gap 19 BUN 11 Creatinine 1.05 Estim Creat Clear Calc 93.5 Estimated GFR > 60 Random Glucose Fasting Glucose 98 Calcium 10.5 H Magnesium Total Bilirubin 1.2 H AST 20 ALT 24 Alkaline Phosphatase 57 Total Protein 8.7 H Albumin 5.2 H Triglycerides 105 Cholesterol 143 LDL Cholesterol, Calc 91 HDL Cholesterol 31 L Lipase Urine Color Urine Appearance Urine pH Ur Specific [place] Urine Protein Urine Glucose (UA) Urine Ketones Urine Blood Urine Nitrite Ur Leukocyte Esterase Urine RBC Urine WBC Ur Squamous Epith Cells Urine Bacteria Hyaline Casts Urine Opiates Screen Urine Fentanyl Screen Ur Barbiturates Screen Ur Phencyclidine Scrn Ur Amphetamines Screen U Benzodiazepines Scrn Urine Cocaine Screen U Marijuana (THC) Screen Ethyl Alcohol COVID-19 (AAYUSH) COVID-19 Clin Com Medications Medications Current Medications Acetaminophen (Acetaminophen 325 Mg Tablet) 650 mg PO Q6H PRN PRN Reason: Headache/Pain Mild Scale (1-3) Al Hydroxide/Mg Hydroxide (Magnesium Hydrox/Alum Hydrox 30 Ml Oral.Susp) 30 ml PO Q6H PRN PRN Reason: Heartburn/Nausea Last Admin: 10/27/23 21:25 Dose: 30 ml Escitalopram Oxalate (Escitalopram Oxalate 20 Mg Tablet) 20 mg PO DAILY [facility] Last Admin: 10/29/23 09:58 Dose: 20 mg Gabapentin (Gabapentin 300 Mg Capsule) 300 mg PO DAILY [facility] Last Admin: 10/29/23 09:58 Dose: 300 mg Hydroxyzine HCl (Hydroxyzine Hcl 25 Mg Tablet) 25 mg PO Q6H PRN PRN Reason: Anxiety Last Admin: 10/27/23 21:49 Dose: 25 mg Lorazepam (Lorazepam 1 Mg Tablet) 1 mg PO TID [facility] Stop: 10/30/23 23:50 Last Admin: 10/29/23 09:58 Dose: 1 mg Lorazepam (Lorazepam 1 Mg Tablet) 1 mg PO BID [facility] Magnesium Hydroxide (Milk Of Magnesia 30 Ml Oral.Susp) 30 ml PO DAILY PRN PRN Reason: Constipation Mirtazapine (Mirtazapine 7.5 Mg Tablet) 7.5 mg PO BEDTIME [facility] Last Admin: 10/28/23 21:54 Dose: 7.5 mg Nicotine Polacrilex (Nicotine Polacrilex 2 Mg Gum) 4 mg BUCCAL Q2H PRN PRN Reason: Nicotine Cravings Omeprazole (Omeprazole 20 Mg Capsule.Dr) 20 mg PO DAILY@0630 [facility] Last Admin: 10/29/23 09:57 Dose: 20 mg Ondansetron HCl (Ondansetron Odt 4 Mg Tab.Rapdis) 8 mg TRANSLINGU Q8H PRN PRN Reason: Nausea Last Admin: 10/28/23 03:35 Dose: 8 mg Quetiapine Fumarate (Quetiapine Fumarate 25 Mg Tablet) 25 mg PO BEDTIME PRN PRN Reason: continued insomnia Trazodone HCl (Trazodone Hcl 50 Mg Tablet) 50 mg PO BEDTIME MRX1 PRN PRN Reason: Insomnia Allergies Allergies Allergy/AdvReac Type Severity Reaction Status Date / Time lactose AdvReac Gastrointestinal Verified 10/27/23 18:08 Upset Assessment & Plan Assessment & Plan (1) MDD (major depressive disorder), recurrent episode, moderate: Status: Acute Code(s): F33.1 - Major depressive disorder, recurrent, moderate (2) Anxiety disorder: Status: Acute Code(s): F41.9 - Anxiety disorder, unspecified (3) COVID-19: Status: Acute Code(s): U07.1 - COVID-19 Plan 23 yo male w/ hx of anxiety, depression, insomnia presents for worsening anxiety with vague SI in face of covid infection and running out of ativan. Pt reports hx of anxiety moderately well controlled with Citalopram, however he says when he got Covid infection, he became exceedingly anxious and for about 4 days he used more than allotted Ativan script and ran out; he prescriber would not fill early and with anxiety, insomnia, covid and some withdrawal, his anxiety became overwhelming and he devoloped SI, though report only passively. Pt prescribed Ativan 1mg BID, which he mostly uses for insomnia; for 4 day, he took 3mg total daily dose which caused him to run out. Denies any Etoh or drug use other than cannabis. Pt endorses ongoing depression, worse past 2 months with increased w/drawal from friends, diminshed interest, lower energy, concentration, intermittent passive sI and increased sleep. Denies trauma hx; denies hx of manic behaviors/episodes. Formulation: anxiety well enough treated with Citalopram, but depression remains a problem. Mostly uses ativan for insomnia only (with failed med trials of Trazodone, clonidine, Ambien, Lunesta). Reviewed med options and patient has never tried Mirtazpine or Seroquel for sleep; reviewed risks/side-effects and pt agrees to try Mirtazapine which can help treat both depression and insomnia. Per patient report, it does not seem that he is actively engaged in Ativan abuse and only used more than normal allotment for 4 days due to exacerbated anxiety (similar event happened a year ago when he got covid; otherwise, never runs out of ativan). Since only 4 days of only ativan 3mg, pt's w/drawal unlikely to be problematic; will do ativan taper but no need for CIwA PLAN: cv q15min checks aTivan 1mg TID; will taper START Mirtazapine 7.5mg qhs (will consider seroquel if need be) Continue Escitalpram 20mg (in place of Citalopram 40mg) 10/29/23- continue ativan will start dec dose 10/30 wondering about giving him 0.5mg tid or 0.5mgqid instead of 1mg bid.. Patient educated on: medication risk/benefits and therapeutic strategies Informed Consent: understands Reason for continued inpatient stay Substantial Risk for: rapid decompensation and med/psych decompensation Time Spent With Patient Time: Total time managing care of this patient today ____ minutes.
[2023-10-29] MEDS: Ondansetron ODT 4 MG TAB.RAPDIS 8 MG TRANSLINGU (11:51)
[2023-10-29 21:10] VITALS: BP 112/80; PULSE 81; TEMP 36.9
[2023-10-29] MEDS: Mirtazapine 7.5 MG TABLET PO (21:14)
[2023-10-30] MEDS: Omeprazole 20 MG CAPSULE.DR PO (08:35)
[2023-10-30] MEDS: LORazepam 1 MG TABLET PO ×3 (08:35→21:20)
[2023-10-30] MEDS: Escitalopram Oxalate 20 MG TABLET PO (08:35)
[2023-10-30] MEDS: Gabapentin 300 MG CAPSULE PO (08:35)
[2023-10-30] MEDS: Acetaminophen 325 MG TABLET 650 MG PO (08:36)
[2023-10-30] MEDS: Ondansetron ODT 4 MG TAB.RAPDIS 8 MG TRANSLINGU (08:37)
--- NOTE | 2023-10-30 12:46 | P.PNPSI_ITS ---
Subjective Subjective Date of Service: 10/30/23 Reason For Visit: Crisis Subjective Notes: Conditional Voluntary Medical Problems Affecting Mental Status: Yes (covid 19 positive on 5 day quarantine, no sig sys) Interim History: 23 yo continues fixated on withdrawl from ativan from 12 hr between dose at night and am- told pt he could get up earlier in am and request dose- but also reminded him of decrease dose tomorrow- Says he was si when he came in but not since- (ativan being given in more regular manner vs his taking what he wanted and then likely being in withdrawl) Wonder about spreading dose thru day differently on taper- but up to team on Tuesday denies current si/hi/psychosis only s/e he co is withdrawl feeling from hs ativan to am dose- some nausea Also suggested pt get family to bring in favorite foods- as suspected from ASD dx he is picky eater and my guess is also very sensitive to body sensations/difference which might be why he is more particularly aware/hypervigilant to withdrawl feeling. Medication Compliance: Yes Side effects from medications: Yes (nausea, sense of withdrawl between doses ? change to long acting diazepam) Attending Groups: No (isolation protocol - ) Review of Systems Acute medical concerns: No quarantine for covid but no acute sys- some congestion a little cough not much pt reporting- though nausea? (vs his sense that it is withdrawl) Medical Review of Systems: unchanged Review of Systems Review of Systems Yes all other systems are reviewed and are negative Mental Status Exam Mental Status Exam Patient Appearance: Well Grooomed and Appropriate Patient Orientation: Person, Place, Time and Situation Level of Consciousness: Awake and Appropriate Patient Behavior: Appropriate and Cooperative Mood Description: Calm Affect Description: Apprehensive Patient Cognition Impaired: No Ability to Follow Directions: Good Speech Pattern: Clear Hallucinations: None Delusions: Not Present Thought Process: Intact and Goal Oriented Thought Content: positive for Intact Depressive Symptoms: Increased Anxiety, Increased Irritability and Unexplained Stomach Pain (nausea- dec apt) Abnormal Motor Activity Signs and Symptoms: Restlessness (but couped up in room on quarantine) Judgement: Fair Diagnostics Vital Signs (24Hr): Vital Signs - 24 hr 10/29/23 21:10 Temperature 98.5 F Pulse Rate 81 Blood Pressure 112/80 BMI result Body Mass Index 26.6 Labs 10/27/23 11:30 10/28/23 08:53 Medications Medications Current Medications Acetaminophen (Acetaminophen 325 Mg Tablet) 650 mg PO Q6H PRN PRN Reason: Headache/Pain Mild Scale (1-3) Last Admin: 10/30/23 08:36 Dose: 650 mg Al Hydroxide/Mg Hydroxide (Magnesium Hydrox/Alum Hydrox 30 Ml Oral.Susp) 30 ml PO Q6H PRN PRN Reason: Heartburn/Nausea Last Admin: 10/27/23 21:25 Dose: 30 ml Escitalopram Oxalate (Escitalopram Oxalate 20 Mg Tablet) 20 mg PO DAILY [facility] Last Admin: 10/30/23 08:35 Dose: 20 mg Gabapentin (Gabapentin 300 Mg Capsule) 300 mg PO DAILY [facility] Last Admin: 10/30/23 08:35 Dose: 300 mg Hydroxyzine HCl (Hydroxyzine Hcl 25 Mg Tablet) 25 mg PO Q6H PRN PRN Reason: Anxiety Last Admin: 10/27/23 21:49 Dose: 25 mg Lorazepam (Lorazepam 1 Mg Tablet) 1 mg PO TID [facility] Stop: 10/30/23 23:50 Last Admin: 10/30/23 08:35 Dose: 1 mg Lorazepam (Lorazepam 1 Mg Tablet) 1 mg PO BID [facility] Magnesium Hydroxide (Milk Of Magnesia 30 Ml Oral.Susp) 30 ml PO DAILY PRN PRN Reason: Constipation Mirtazapine (Mirtazapine 7.5 Mg Tablet) 7.5 mg PO BEDTIME [facility] Last Admin: 10/29/23 21:14 Dose: 7.5 mg Nicotine Polacrilex (Nicotine Polacrilex 2 Mg Gum) 4 mg BUCCAL Q2H PRN PRN Reason: Nicotine Cravings Omeprazole (Omeprazole 20 Mg Capsule.Dr) 20 mg PO DAILY@0630 [facility] Last Admin: 10/30/23 08:35 Dose: 20 mg Ondansetron HCl (Ondansetron Odt 4 Mg Tab.Rapdis) 8 mg TRANSLINGU Q8H PRN PRN Reason: Nausea Last Admin: 10/30/23 08:37 Dose: 8 mg Quetiapine Fumarate (Quetiapine Fumarate 25 Mg Tablet) 25 mg PO BEDTIME PRN PRN Reason: continued insomnia Trazodone HCl (Trazodone Hcl 50 Mg Tablet) 50 mg PO BEDTIME MRX1 PRN PRN Reason: Insomnia Allergies Allergies Allergy/AdvReac Type Severity Reaction Status Date / Time lactose AdvReac Gastrointestinal Verified 10/27/23 18:08 Upset Assessment & Plan Assessment & Plan (1) MDD (major depressive disorder), recurrent episode, moderate: Status: Acute Code(s): F33.1 - Major depressive disorder, recurrent, moderate (2) Anxiety disorder: Status: Acute Code(s): F41.9 - Anxiety disorder, unspecified (3) COVID-19: Status: Acute Code(s): U07.1 - COVID-19 Plan 23 yo male w/ hx of anxiety, depression, insomnia presents for worsening anxiety with vague SI in face of covid infection and running out of ativan. Pt reports hx of anxiety moderately well controlled with Citalopram, however he says when he got Covid infection, he became exceedingly anxious and for about 4 days he used more than allotted Ativan script and ran out; he prescriber would not fill early and with anxiety, insomnia, covid and some withdrawal, his anxiety became overwhelming and he devoloped SI, though report only passively. Pt prescribed Ativan 1mg BID, which he mostly uses for insomnia; for 4 day, he took 3mg total daily dose which caused him to run out. Denies any Etoh or drug use other than cannabis. Pt endorses ongoing depression, worse past 2 months with increased w/drawal from friends, diminshed interest, lower energy, concentration, intermittent passive sI and increased sleep. Denies trauma hx; denies hx of manic behaviors/episodes. Formulation: anxiety well enough treated with Citalopram, but depression remains a problem. Mostly uses ativan for insomnia only (with failed med trials of Trazodone, clonidine, Ambien, Lunesta). Reviewed med options and patient has never tried Mirtazpine or Seroquel for sleep; reviewed risks/side-effects and pt agrees to try Mirtazapine which can help treat both depression and insomnia. Per patient report, it does not seem that he is actively engaged in Ativan abuse and only used more than normal allotment for 4 days due to exacerbated anxiety (similar event happened a year ago when he got covid; otherwise, never runs out of ativan). Since only 4 days of only ativan 3mg, pt's w/drawal unlikely to be problematic; will do ativan taper but no need for CIwA PLAN: cv q15min checks aTivan 1mg TID; will taper START Mirtazapine 7.5mg qhs (will consider seroquel if need be) Continue Escitalpram 20mg (in place of Citalopram 40mg) 10/29/23- continue ativan will start dec dose 10/30 wondering about giving him 0.5mg tid or 0.5mgqid instead of 1mg bid.. 10/30/23 given ASD my guess is more sensitivity to all body sensations with greater reactivity- suggest ? change ativan to longer acting for taper Patient educated on: medication risk/benefits and therapeutic strategies Informed Consent: further education needed Reason for continued inpatient stay Substantial Risk for: rapid decompensation and med/psych decompensation Time Spent With Patient Time: Total time managing care of this patient today ____ minutes.
[2023-10-30 20:55] VITALS: BP 119/62; PULSE 78; RESP 16; TEMP 36.6; O2SAT 98
[2023-10-30] MEDS: Mirtazapine 7.5 MG TABLET PO (21:20)
[2023-10-31] MEDS: Omeprazole 20 MG CAPSULE.DR PO (05:31)
[2023-10-31 08:00] VITALS: BP 121/64; PULSE 87; RESP 16; TEMP 37.1; O2SAT 95
[2023-10-31] MEDS: Escitalopram Oxalate 20 MG TABLET PO (08:47)
[2023-10-31] MEDS: Gabapentin 300 MG CAPSULE PO (08:47)
[2023-10-31] MEDS: LORazepam 1 MG TABLET PO ×2 (08:47→21:18)
--- NOTE | 2023-10-31 09:48 | HO.PSYCHPN ---
Subjective Subjective Date of Service: 10/31/23 Reason For Visit: Crisis Interim History: met with patient; discussed with team; reviewed chart Patient reports that he is doing pretty good and feels that withdrawal is over. Says anxiety remains well controlled and his mood has improved. He says he is eating well which is new for him and also reports that he has been sleeping well. At this time patient does not feel he requires further medication management. He still little anxious that he might have some residual withdrawal. He remains in isolation due to COVID Mental Status Exam Mental Status Exam Narrative: Pt is alert and oriented; behavior is cooperative, friendly and calm; patient is not in distress; dressed in casual attire with unkempt hair but adequate hygiene; mood is described as good and affect congruent; eye contact appropriate; Speech is normal rate, volume and prosody and not pressured; no psychomotor agitation/retardation present; thought process is organized and goal directed; Thought content is on tx; otherwise pertinent to relevant topics and without any delusional content, paranoid ideations or grandiosity; denies any SI/HI. There is no evidence of perceptual disturbance. Patients insight and judgment appear intact. Diagnostics Vital Signs (24Hr): Vital Signs - 24 hr 10/30/23 20:55 Temperature 97.8 F Pulse Rate 78 Respiratory Rate 16 Blood Pressure 119/62 Pulse Oximetry 98 Oxygen Delivery Method Room Air BMI result Body Mass Index 26.6 Labs 10/27/23 11:30 10/28/23 08:53 Medications Medications Current Medications Acetaminophen (Acetaminophen 325 Mg Tablet) 650 mg PO Q6H PRN PRN Reason: Headache/Pain Mild Scale (1-3) Last Admin: 10/30/23 08:36 Dose: 650 mg Al Hydroxide/Mg Hydroxide (Magnesium Hydrox/Alum Hydrox 30 Ml Oral.Susp) 30 ml PO Q6H PRN PRN Reason: Heartburn/Nausea Last Admin: 10/27/23 21:25 Dose: 30 ml Escitalopram Oxalate (Escitalopram Oxalate 20 Mg Tablet) 20 mg PO DAILY [facility] Last Admin: 10/31/23 08:47 Dose: 20 mg Gabapentin (Gabapentin 300 Mg Capsule) 300 mg PO DAILY [facility] Last Admin: 10/31/23 08:47 Dose: 300 mg Hydroxyzine HCl (Hydroxyzine Hcl 25 Mg Tablet) 25 mg PO Q6H PRN PRN Reason: Anxiety Last Admin: 10/27/23 21:49 Dose: 25 mg Lorazepam (Lorazepam 1 Mg Tablet) 1 mg PO BID [facility] Last Admin: 10/31/23 08:47 Dose: 1 mg Magnesium Hydroxide (Milk Of Magnesia 30 Ml Oral.Susp) 30 ml PO DAILY PRN PRN Reason: Constipation Mirtazapine (Mirtazapine 7.5 Mg Tablet) 7.5 mg PO BEDTIME [facility] Last Admin: 10/30/23 21:20 Dose: 7.5 mg Nicotine Polacrilex (Nicotine Polacrilex 2 Mg Gum) 4 mg BUCCAL Q2H PRN PRN Reason: Nicotine Cravings Omeprazole (Omeprazole 20 Mg Capsule.Dr) 20 mg PO DAILY@0630 [facility] Last Admin: 10/31/23 05:31 Dose: 20 mg Ondansetron HCl (Ondansetron Odt 4 Mg Tab.Rapdis) 8 mg TRANSLINGU Q8H PRN PRN Reason: Nausea Last Admin: 10/30/23 08:37 Dose: 8 mg Quetiapine Fumarate (Quetiapine Fumarate 25 Mg Tablet) 25 mg PO BEDTIME PRN PRN Reason: continued insomnia Trazodone HCl (Trazodone Hcl 50 Mg Tablet) 50 mg PO BEDTIME MRX1 PRN PRN Reason: Insomnia Allergies Allergies Allergy/AdvReac Type Severity Reaction Status Date / Time lactose AdvReac Gastrointestinal Verified 10/27/23 18:08 Upset Assessment & Plan Assessment & Plan (1) MDD (major depressive disorder), recurrent episode, moderate: Status: Acute Code(s): F33.1 - Major depressive disorder, recurrent, moderate (2) Anxiety disorder: Status: Acute Code(s): F41.9 - Anxiety disorder, unspecified (3) COVID-19: Status: Acute Code(s): U07.1 - COVID-19 Plan 23 yo male w/ hx of anxiety, depression, insomnia presents for worsening anxiety with vague SI in face of covid infection and running out of ativan. Pt reports hx of anxiety moderately well controlled with Citalopram, however he says when he got Covid infection, he became exceedingly anxious and for about 4 days he used more than allotted Ativan script and ran out; he prescriber would not fill early and with anxiety, insomnia, covid and some withdrawal, his anxiety became overwhelming and he devoloped SI, though report only passively. Pt prescribed Ativan 1mg BID, which he mostly uses for insomnia; for 4 day, he took 3mg total daily dose which caused him to run out. Denies any Etoh or drug use other than cannabis. Pt endorses ongoing depression, worse past 2 months with increased w/drawal from friends, diminshed interest, lower energy, concentration, intermittent passive sI and increased sleep. Denies trauma hx; denies hx of manic behaviors/episodes. Formulation: anxiety well enough treated with Citalopram, but depression remains a problem. Mostly uses ativan for insomnia only (with failed med trials of Trazodone, clonidine, Ambien, Lunesta). Reviewed med options and patient has never tried Mirtazpine or Seroquel for sleep; reviewed risks/side-effects and pt agrees to try Mirtazapine which can help treat both depression and insomnia. Per patient report, it does not seem that he is actively engaged in Ativan abuse and only used more than normal allotment for 4 days due to exacerbated anxiety (similar event happened a year ago when he got covid; otherwise, never runs out of ativan). Since only 4 days of only ativan 3mg, pt's w/drawal unlikely to be problematic; will do ativan taper but no need for [facility] course: 10/28- continue ativan will start dec dose 10/30 wondering about giving him 0.5mg tid or 0.5mgqid instead of 1mg bid.. 10/30 Patient reports that he is doing pretty good and feels that withdrawal is over. Says anxiety remains well controlled and his mood has improved. He says he is eating well which is new for him and also reports that he has been sleeping well. At this time patient does not feel he requires further medication management. He still little anxious that he might have some residual withdrawal. He remains in isolation due to COVID -regarding Ativan, he is now back at his outpatient regimen dose PLAN: cv q15min checks continue aTivan 1mg bID; this his outpatient regimen; will likely transition it to p.r.n. Continue Mirtazapine 7.5mg qhs (will consider seroquel if need be) Continue Escitalpram 20mg (in place of Citalopram 40mg) Patient educated on: diagnosis and medication risk/benefits Informed Consent: understands Reason for continued inpatient stay Substantial Risk for: stable for discharge Time Spent With Patient Time: Total time managing care of this patient today ____ minutes.
[2023-10-31 20:10] VITALS: BP 122/68; PULSE 74; RESP 18; TEMP 36.6; O2SAT 97
[2023-10-31] MEDS: Acetaminophen 325 MG TABLET 650 MG PO (21:18)
[2023-10-31] MEDS: Mirtazapine 7.5 MG TABLET PO (21:18)
[2023-11-01] MEDS: Omeprazole 20 MG CAPSULE.DR PO (06:37)
[2023-11-01] MEDS: Gabapentin 300 MG CAPSULE PO (08:31)
[2023-11-01] MEDS: LORazepam 1 MG TABLET PO ×2 (08:31→20:15)
[2023-11-01] MEDS: Escitalopram Oxalate 20 MG TABLET PO (08:31)
[2023-11-01 08:42] VITALS: BP 122/67; PULSE 71; RESP 16; TEMP 36.5; O2SAT 98
--- NOTE | 2023-11-01 09:48 | HO.PSYCHPN ---
Subjective Subjective Date of Service: 11/01/23 Reason For Visit: Crisis Interim History: Met with patient; discussed with team Patient feeling good, sleeping well, eating his meals which she again is happy about. Anxiety remains in good control. Patient feels that medications are helping and he wants to continue with. No withdrawal. Denies any COVID type symptoms. Feels good about discharging Mental Status Exam Mental Status Exam Narrative: Pt is alert and oriented; behavior is cooperative, friendly and calm; patient is not in distress; dressed in casual attire with unkempt hair but adequate hygiene; mood is described as good and affect congruent; eye contact appropriate; Speech is normal rate, volume and prosody and not pressured; no psychomotor agitation/retardation present; thought process is organized and goal directed; Thought content is on tx; otherwise pertinent to relevant topics and without any delusional content, paranoid ideations or grandiosity; denies any SI/HI. There is no evidence of perceptual disturbance. Patients insight and judgment are fair Diagnostics Vital Signs (24Hr): Vital Signs - 24 hr 10/31/23 20:10 11/01/23 08:42 Temperature 97.9 F 97.7 F Pulse Rate 74 71 Respiratory Rate 18 16 Blood Pressure 122/68 122/67 Pulse Oximetry 97 98 Oxygen Delivery Method Room Air Room Air BMI result Body Mass Index 26.6 Labs 10/27/23 11:30 10/28/23 08:53 Medications Medications Current Medications Acetaminophen (Acetaminophen 325 Mg Tablet) 650 mg PO Q6H PRN PRN Reason: Headache/Pain Mild Scale (1-3) Last Admin: 10/31/23 21:18 Dose: 650 mg Al Hydroxide/Mg Hydroxide (Magnesium Hydrox/Alum Hydrox 30 Ml Oral.Susp) 30 ml PO Q6H PRN PRN Reason: Heartburn/Nausea Last Admin: 10/27/23 21:25 Dose: 30 ml Escitalopram Oxalate (Escitalopram Oxalate 20 Mg Tablet) 20 mg PO DAILY [facility] Last Admin: 11/01/23 08:31 Dose: 20 mg Gabapentin (Gabapentin 300 Mg Capsule) 300 mg PO DAILY [facility] Last Admin: 11/01/23 08:31 Dose: 300 mg Hydroxyzine HCl (Hydroxyzine Hcl 25 Mg Tablet) 25 mg PO Q6H PRN PRN Reason: Anxiety Last Admin: 10/27/23 21:49 Dose: 25 mg Lorazepam (Lorazepam 1 Mg Tablet) 1 mg PO BID [facility] Last Admin: 11/01/23 08:31 Dose: 1 mg Magnesium Hydroxide (Milk Of Magnesia 30 Ml Oral.Susp) 30 ml PO DAILY PRN PRN Reason: Constipation Mirtazapine (Mirtazapine 7.5 Mg Tablet) 7.5 mg PO BEDTIME [facility] Last Admin: 10/31/23 21:18 Dose: 7.5 mg Nicotine Polacrilex (Nicotine Polacrilex 2 Mg Gum) 4 mg BUCCAL Q2H PRN PRN Reason: Nicotine Cravings Omeprazole (Omeprazole 20 Mg Capsule.Dr) 20 mg PO DAILY@0630 [facility] Last Admin: 11/01/23 06:37 Dose: 20 mg Ondansetron HCl (Ondansetron Odt 4 Mg Tab.Rapdis) 8 mg TRANSLINGU Q8H PRN PRN Reason: Nausea Last Admin: 10/30/23 08:37 Dose: 8 mg Quetiapine Fumarate (Quetiapine Fumarate 25 Mg Tablet) 25 mg PO BEDTIME PRN PRN Reason: continued insomnia Trazodone HCl (Trazodone Hcl 50 Mg Tablet) 50 mg PO BEDTIME MRX1 PRN PRN Reason: Insomnia Allergies Allergies Allergy/AdvReac Type Severity Reaction Status Date / Time lactose AdvReac Gastrointestinal Verified 10/27/23 18:08 Upset Assessment & Plan Assessment & Plan (1) MDD (major depressive disorder), recurrent episode, moderate: Status: Acute Code(s): F33.1 - Major depressive disorder, recurrent, moderate (2) Anxiety disorder: Status: Acute Code(s): F41.9 - Anxiety disorder, unspecified (3) COVID-19: Status: Acute Code(s): U07.1 - COVID-19 Plan 23 yo male w/ hx of anxiety, depression, insomnia presents for worsening anxiety with vague SI in face of covid infection and running out of ativan. Pt reports hx of anxiety moderately well controlled with Citalopram, however he says when he got Covid infection, he became exceedingly anxious and for about 4 days he used more than allotted Ativan script and ran out; he prescriber would not fill early and with anxiety, insomnia, covid and some withdrawal, his anxiety became overwhelming and he devoloped SI, though report only passively. Pt prescribed Ativan 1mg BID, which he mostly uses for insomnia; for 4 day, he took 3mg total daily dose which caused him to run out. Denies any Etoh or drug use other than cannabis. Pt endorses ongoing depression, worse past 2 months with increased w/drawal from friends, diminshed interest, lower energy, concentration, intermittent passive sI and increased sleep. Denies trauma hx; denies hx of manic behaviors/episodes. Formulation: anxiety well enough treated with Citalopram, but depression remains a problem. Mostly uses ativan for insomnia only (with failed med trials of Trazodone, clonidine, Ambien, Lunesta). Reviewed med options and patient has never tried Mirtazpine or Seroquel for sleep; reviewed risks/side-effects and pt agrees to try Mirtazapine which can help treat both depression and insomnia. Per patient report, it does not seem that he is actively engaged in Ativan abuse and only used more than normal allotment for 4 days due to exacerbated anxiety (similar event happened a year ago when he got covid; otherwise, never runs out of ativan). Since only 4 days of only ativan 3mg, pt's w/drawal unlikely to be problematic; will do ativan taper but no need for [facility] course: 10/28- continue ativan will start dec dose 10/30 wondering about giving him 0.5mg tid or 0.5mgqid instead of 1mg bid.. 10/30 Patient reports that he is doing pretty good and feels that withdrawal is over. Says anxiety remains well controlled and his mood has improved. He says he is eating well which is new for him and also reports that he has been sleeping well. At this time patient does not feel he requires further medication management. He still little anxious that he might have some residual withdrawal. He remains in isolation due to COVID -regarding Ativan, he is now back at his outpatient regimen dose 10/31 Patient feeling good, sleeping well, eating his meals which she again is happy about. Anxiety remains in good control. Patient feels that medications are helping and he wants to continue with. No withdrawal. Denies any COVID type symptoms. Feels good about discharging -wants to go back to citalopram on discharge PLAN: cv q15min checks continue aTivan 1mg bID; this his outpatient regimen; will likely transition it to p.r.n. Continue Mirtazapine 7.5mg qhs (will consider seroquel if need be) Continue Escitalpram 20mg (in place of Citalopram 40mg) Patient educated on: diagnosis, medication risk/benefits and medical condition Informed Consent: understands Reason for continued inpatient stay Substantial Risk for: stable for discharge Time Spent With Patient Time: Total time managing care of this patient today ____ minutes.
[2023-11-01 18:00] VITALS: BP 116/68; PULSE 68; RESP 18; TEMP 36.4; O2SAT 98
[2023-11-01] MEDS: Mirtazapine 7.5 MG TABLET PO (20:15)
[2023-11-02] MEDS: Omeprazole 20 MG CAPSULE.DR PO (06:01)
[2023-11-02 07:56] VITALS: BP 97/60; PULSE 73; RESP 16; TEMP 36.6; O2SAT 99
[2023-11-02] MEDS: Gabapentin 300 MG CAPSULE PO (08:56)
[2023-11-02] MEDS: LORazepam 1 MG TABLET PO ×2 (08:56→20:11)
[2023-11-02] MEDS: Escitalopram Oxalate 20 MG TABLET PO (08:56)
[2023-11-02 11:55] LABS: COVID-19 Test Negative (Negative); IDNOW Serial# 152EDE1D
[2023-11-02 16:10] VITALS: BP 105/55; PULSE 72; RESP 16; TEMP 36.4; O2SAT 98
--- NOTE | 2023-11-02 18:21 | P.PNPSI_ITS ---
Subjective Subjective Date of Service: 11/02/23 Reason For Visit: Crisis Interim History: Met with patient; discussed with team Patient again reports good mood, sleeping well and feeling ready for discharge. COVID test redone and negative; technical writer discussed results with infectious control who reported patient is able to come out of quarantine with negative result. Mental Status Exam Mental Status Exam Narrative: Pt is alert and oriented; behavior is cooperative, friendly and calm; patient is not in distress; dressed in casual attire with unkempt hair but adequate hygiene; mood is described as good and affect congruent; eye contact appropriate; Speech is normal rate, volume and prosody and not pressured; no psychomotor agitation/retardation present; thought process is organized and goal directed; Thought content is on tx; otherwise pertinent to relevant topics and without any delusional content, paranoid ideations or grandiosity; denies any SI/HI. There is no evidence of perceptual disturbance. Patients insight and judgment are fair Diagnostics Vital Signs (24Hr): Vital Signs - 24 hr 11/02/23 07:56 11/02/23 16:10 Temperature 97.8 F 97.5 F Pulse Rate 73 72 Respiratory Rate 16 16 Blood Pressure 97/60 105/55 L Pulse Oximetry 99 98 Oxygen Delivery Method Room Air Room Air BMI result Body Mass Index 26.6 Labs 10/27/23 11:30 10/28/23 08:53 Labs: Laboratory Results - last 48 hr 11/02/23 11:07 COVID-19 ([facility]) Negative COVID-19 Clin Com See Note Medications Medications Current Medications Acetaminophen (Acetaminophen 325 Mg Tablet) 650 mg PO Q6H PRN PRN Reason: Headache/Pain Mild Scale (1-3) Last Admin: 10/31/23 21:18 Dose: 650 mg Al Hydroxide/Mg Hydroxide (Magnesium Hydrox/Alum Hydrox 30 Ml Oral.Susp) 30 ml PO Q6H PRN PRN Reason: Heartburn/Nausea Last Admin: 10/27/23 21:25 Dose: 30 ml Escitalopram Oxalate (Escitalopram Oxalate 20 Mg Tablet) 20 mg PO DAILY VIKRAM Last Admin: 11/02/23 08:56 Dose: 20 mg Gabapentin (Gabapentin 300 Mg Capsule) 300 mg PO DAILY VIKRAM Last Admin: 11/02/23 08:56 Dose: 300 mg Hydroxyzine HCl (Hydroxyzine Hcl 25 Mg Tablet) 25 mg PO Q6H PRN PRN Reason: Anxiety Last Admin: 10/27/23 21:49 Dose: 25 mg Lorazepam (Lorazepam 1 Mg Tablet) 1 mg PO BID [facility] Last Admin: 11/02/23 08:56 Dose: 1 mg Magnesium Hydroxide (Milk Of Magnesia 30 Ml Oral.Susp) 30 ml PO DAILY PRN PRN Reason: Constipation Mirtazapine (Mirtazapine 7.5 Mg Tablet) 7.5 mg PO BEDTIME [facility] Last Admin: 11/01/23 20:15 Dose: 7.5 mg Nicotine Polacrilex (Nicotine Polacrilex 2 Mg Gum) 4 mg BUCCAL Q2H PRN PRN Reason: Nicotine Cravings Omeprazole (Omeprazole 20 Mg Capsule.Dr) 20 mg PO DAILY@0630 [facility] Last Admin: 11/02/23 06:01 Dose: 20 mg Ondansetron HCl (Ondansetron Odt 4 Mg Tab.Rapdis) 8 mg TRANSLINGU Q8H PRN PRN Reason: Nausea Last Admin: 10/30/23 08:37 Dose: 8 mg Quetiapine Fumarate (Quetiapine Fumarate 25 Mg Tablet) 25 mg PO BEDTIME PRN PRN Reason: continued insomnia Trazodone HCl (Trazodone Hcl 50 Mg Tablet) 50 mg PO BEDTIME MRX1 PRN PRN Reason: Insomnia Allergies Allergies Allergy/AdvReac Type Severity Reaction Status Date / Time lactose AdvReac Gastrointestinal Verified 10/27/23 18:08 Upset Assessment & Plan Assessment & Plan (1) MDD (major depressive disorder), recurrent episode, moderate: Status: Acute Code(s): F33.1 - Major depressive disorder, recurrent, moderate (2) Anxiety disorder: Status: Acute Code(s): F41.9 - Anxiety disorder, unspecified (3) COVID-19: Status: Acute Code(s): U07.1 - COVID-19 Plan 23 yo male w/ hx of anxiety, depression, insomnia presents for worsening anxiety with vague SI in face of covid infection and running out of ativan. Pt reports hx of anxiety moderately well controlled with Citalopram, however he says when he got Covid infection, he became exceedingly anxious and for about 4 days he used more than allotted Ativan script and ran out; he prescriber would not fill early and with anxiety, insomnia, covid and some withdrawal, his anxiety became overwhelming and he devoloped SI, though report only passively. Pt prescribed Ativan 1mg BID, which he mostly uses for insomnia; for 4 day, he took 3mg total daily dose which caused him to run out. Denies any Etoh or drug use other than cannabis. Pt endorses ongoing depression, worse past 2 months with increased w/drawal from friends, diminshed interest, lower energy, concentration, intermittent passive sI and increased sleep. Denies trauma hx; denies hx of manic behaviors/episodes. Formulation: anxiety well enough treated with Citalopram, but depression remains a problem. Mostly uses ativan for insomnia only (with failed med trials of Trazodone, clonidine, Ambien, Lunesta). Reviewed med options and patient has never tried Mirtazpine or Seroquel for sleep; reviewed risks/side-effects and pt agrees to try Mirtazapine which can help treat both depression and insomnia. Per patient report, it does not seem that he is actively engaged in Ativan abuse and only used more than normal allotment for 4 days due to exacerbated anxiety (similar event happened a year ago when he got covid; otherwise, never runs out of ativan). Since only 4 days of only ativan 3mg, pt's w/drawal unlikely to be problematic; will do ativan taper but no need for [facility] Hospital course: 10/28- continue ativan will start dec dose 10/30 wondering about giving him 0.5mg tid or 0.5mgqid instead of 1mg bid.. 10/30 Patient reports that he is doing pretty good and feels that withdrawal is over. Says anxiety remains well controlled and his mood has improved. He says he is eating well which is new for him and also reports that he has been sleeping well. At this time patient does not feel he requires further medication management. He still little anxious that he might have some residual withdrawal. He remains in isolation due to COVID -regarding Ativan, he is now back at his outpatient regimen dose 10/31 Patient feeling good, sleeping well, eating his meals which she again is happy about. Anxiety remains in good control. Patient feels that medications are helping and he wants to continue with. No withdrawal. Denies any COVID type symptoms. Feels good about discharging -wants to go back to citalopram on discharge / patient remains in good mood, sleeping well, anxiety under good control. No withdrawal. Future oriented. Patient feels ready for discharge tomorrow and 3 day notice is coming due. He is not in imminent risk for harm to self or others and request for discharge honored PLAN: 3 day q15min checks continue aTivan 1mg bID; this his outpatient regimen; will likely transition it to p.r.n. Continue Mirtazapine 7.5mg qhs (will consider seroquel if need be) Continue Escitalpram 20mg (in place of Citalopram 40mg) Patient educated on: diagnosis, medication risk/benefits and medical condition Informed Consent: understands Reason for continued inpatient stay Substantial Risk for: stable for discharge Time Spent With Patient Time: Total time managing care of this patient today ____ minutes.
--- NOTE | 2023-11-02 18:27 | P.DS_ITS ---
DS: Providers Provider Date of Service: 11/03/23 Date of admission: 10/27/23 18:27 Date of discharge: 11/03/23 Primary care physician: Goyo Desai MD Attending physician on admission: Pedro Dumont Attending physician on discharge: Pedro Dumont DS: Diagnosis Discharge Diagnosis (1) MDD (major depressive disorder), recurrent episode, moderate: Status: Acute (2) Anxiety disorder: Status: Acute (3) COVID-19: Status: Acute DS: Medications Discharge Medications Home Medications: Home Medications Medication Instructions Recorded Confirmed citalopram 40 mg tablet 40 mg PO DAILY 10/27/23 10/27/23 gabapentin 300 mg capsule 300 mg PO DAILY 10/27/23 10/27/23 lorazepam 1 mg tablet 1 mg PO BID 10/27/23 10/27/23 omeprazole 20 mg capsule,delayed 20 mg PO DAILY 10/27/23 10/27/23 release Previous Rx's Medication Instructions Recorded mirtazapine 7.5 mg tablet 7.5 mg PO BEDTIME 30 days #30 tabs 11/02/23 Mental Status Exam Mental Status Exam Narrative: Pt is alert and oriented; behavior is cooperative, friendly and calm; patient is not in distress; dressed in casual attire with unkempt hair but adequate hygiene; mood is described as good and affect congruent; eye contact appropriate; Speech is normal rate, volume and prosody and not pressured; no psychomotor agitation/retardation present; thought process is organized and goal directed; Thought content is on tx; otherwise pertinent to relevant topics and without any delusional content, paranoid ideations or grandiosity; denies any SI/HI. There is no evidence of perceptual disturbance. Patients insight and judgment are fair Data Data Completed and Pending Completed studies during hospitalization [Text1]: 10/27/23 10/27/23 10/27/23 11:30 12:24 18:22 WBC 5.3 RBC 5.00 Hgb 15.6 Hct 43.4 MCV 86.8 MCH 31.2 MCHC 35.9 RDW 12.0 Plt Count 155 L D MPV 11.4 Immature Gran % (Auto) 0.2 Neut % (Auto) 74.7 H Lymph % (Auto) 17.4 L [place] % (Auto) 6.6 Eos % (Auto) 0.9 Baso % (Auto) 0.2 Lymph # (Auto) 0.9 L [place] # (Auto) 0.4 Eos # (Auto) 0.1 Baso # (Auto) 0.0 Abs Immat Gran (auto) 0.01 Absolute Neuts (auto) 4.0 Absolute Nucleated RBC 0.000 Nucleated RBC % (auto) 0.0 Sodium 140 Potassium 4.2 Chloride 101 Carbon Dioxide 25 Anion Gap 18 BUN 10 Creatinine 1.01 Estim Creat Clear Calc 97.2 Estimated GFR > 60 Random Glucose 82 Fasting Glucose Calcium 10.1 Magnesium 2.1 Total Bilirubin 1.3 H AST 22 ALT 25 Alkaline Phosphatase 54 Total Protein 8.0 Albumin 4.8 Triglycerides Cholesterol LDL Cholesterol, Calc HDL Cholesterol Lipase 29 Urine Color Yellow Urine Appearance Clear Urine pH 5.5 Ur Specific [place] 1.025 Urine Protein Trace Urine Glucose (UA) Negative Urine Ketones >=160 Urine Blood Trace H Urine Nitrite Negative Ur Leukocyte Esterase Negative Urine RBC 0-2 Urine WBC 0-5 Ur Squamous Epith Cells 0-2 Urine Bacteria None Seen Hyaline Casts 0-2 Urine Opiates Screen Not Detected Urine Fentanyl Screen Not Detected Ur Barbiturates Screen Not Detected Ur Phencyclidine Scrn Not Detected Ur Amphetamines Screen Not Detected U Benzodiazepines Scrn Not Detected Urine Cocaine Screen Not Detected U Marijuana (THC) Screen POSITIVE H Ethyl Alcohol < 10 COVID-19 ([facility]) Positive A COVID-19 Clin Com See Note 10/28/23 11/02/23 08:53 11:07 WBC RBC Hgb Hct MCV MCH MCHC RDW Plt Count MPV Immature Gran % (Auto) Neut % (Auto) Lymph % (Auto) [place] % (Auto) Eos % (Auto) Baso % (Auto) Lymph # (Auto) [place] # (Auto) Eos # (Auto) Baso # (Auto) Abs Immat Gran (auto) Absolute Neuts (auto) Absolute Nucleated RBC Nucleated RBC % (auto) Sodium 141 Potassium 3.4 Chloride 100 Carbon Dioxide 25 Anion Gap 19 BUN 11 Creatinine 1.05 Estim Creat Clear Calc 93.5 Estimated GFR > 60 Random Glucose Fasting Glucose 98 Calcium 10.5 H Magnesium Total Bilirubin 1.2 H AST 20 ALT 24 Alkaline Phosphatase 57 Total Protein 8.7 H Albumin 5.2 H Triglycerides 105 Cholesterol 143 LDL Cholesterol, Calc 91 HDL Cholesterol 31 L Lipase Urine Color Urine Appearance Urine pH Ur Specific [place] Urine Protein Urine Glucose (UA) Urine Ketones Urine Blood Urine Nitrite Ur Leukocyte Esterase Urine RBC Urine WBC Ur Squamous Epith Cells Urine Bacteria Hyaline Casts Urine Opiates Screen Urine Fentanyl Screen Ur Barbiturates Screen Ur Phencyclidine Scrn Ur Amphetamines Screen U Benzodiazepines Scrn Urine Cocaine Screen U Marijuana (THC) Screen Ethyl Alcohol COVID-19 ([facility]) Negative COVID-19 Clin Com See Note DS: Summary Hospital Course Hospital Course: 23 yo male w/ hx of anxiety, depression, insomnia presents for worsening anxiety with vague SI in face of covid infection and running out of ativan. Pt reports hx of anxiety moderately well controlled with Citalopram, however he says when he got Covid infection, he became exceedingly anxious and for about 4 days he used more than allotted Ativan script and ran out; he prescriber would not fill early and with anxiety, insomnia, covid and some withdrawal, his anxiety became overwhelming and he devoloped SI, though report only passively. Pt prescribed Ativan 1mg BID, which he mostly uses for insomnia; for 4 day, he took 3mg total daily dose which caused him to run out. Denies any Etoh or drug use other than cannabis. Pt endorses ongoing depression, worse past 2 months with increased w/drawal from friends, diminshed interest, lower energy, concentration, intermittent passive sI and increased sleep. Denies trauma hx; denies hx of manic behaviors/episodes. Formulation: anxiety well enough treated with Citalopram, but depression remains a problem. Mostly uses ativan for insomnia only (with failed med trials of Trazodone, clonidine, Ambien, Lunesta). Reviewed med options and patient has never tried Mirtazpine or Seroquel for sleep; reviewed risks/side-effects and pt agrees to try Mirtazapine which can help treat both depression and insomnia. Per patient report, it does not seem that he is actively engaged in Ativan abuse and only used more than normal allotment for 4 days due to exacerbated anxiety (similar event happened a year ago when he got covid; otherwise, never runs out of ativan). Since only 4 days of only ativan 3mg, pt's w/drawal unlikely to be problematic; will do ativan taper but no need for [facility] Hospital course: 10/28- continue ativan will start dec dose 10/30 wondering about giving him 0.5mg tid or 0.5mgqid instead of 1mg bid.. 10/30 Patient reports that he is doing pretty good and feels that withdrawal is over. Says anxiety remains well controlled and his mood has improved. He says he is eating well which is new for him and also reports that he has been sleeping well. At this time patient does not feel he requires further medication management. He still little anxious that he might have some residual withdrawal. He remains in isolation due to COVID -regarding Ativan, he is now back at his outpatient regimen dose 10/31 Patient feeling good, sleeping well, eating his meals which she again is happy about. Anxiety remains in good control. Patient feels that medications are helping and he wants to continue with. No withdrawal. Denies any COVID type symptoms. Feels good about discharging -wants to go back to citalopram on discharge 3 day notice coming due. Pt is a at baseline. He is in good mood, sleeping well, anxiety under good control. No withdrawal. Future oriented. Patient feels ready for discharge tomorrow and 3 day notice is coming due. Patient has established outpt support, psychiatry and returns to live with his supportive mother. He is not in imminent risk for harm to self or others and request for discharge honored Time spent discussing smoking cessation with patient: 3 to 10 minutes Status at Discharge Functional status at discharge: independent ambulation Overall status at discharge: patient is back to baseline Time Spent with Patient Time attestation: Total time managing care of this patient today _35__ minutes. Time spent: Greater than 30 minutes Discharge Plan Discharge Anticipated Discharge Date/Time: 11/03/23 11:00 Patient Disposition: Home, Self-Care Discharge Diagnosis: MDD, recurrent, moderate, in full remission Referrals: EMILY PHAM, THERAPIST [Other] - 11/07/23 2:00 pm ([facility]) DR. MCDONOUGH, PSYCHIATRY [Other] - 11/21/23 9:30 am (IN OFFICE) Goyo Desai MD [Primary Care Provider] - (Office will call you.) Discharge Medications: New mirtazapine 7.5 mg Tablet 7.5 mg PO BEDTIME 30 Days Qty: 30 0RF Continued citalopram 40 mg tablet 40 mg PO DAILY gabapentin 300 mg capsule 300 mg PO DAILY omeprazole 20 mg capsule,delayed release(/EC) 20 mg PO DAILY lorazepam 1 mg tablet 1 mg PO BID Discharge Orders: Discharge Order (Routine); Ordered 11/03/23 Ordered By: Pedro Dumont Diet: Regular diet Activity on Discharge: As tolerated Stand Alone Forms: Patient Portal Discharge page, Community Support Print Language: Spanish Care Plan Goals: Maintain mood and safe behaviors Take medications as prescribed Practice coping skills Continue with outpatient providers and reach out to them as needed Health Concerns: Mood stability and behaviors Plan of Treatment: Follow up with your PCP, psychiatric provider and other outpatient providers regarding above concerns Take medications as prescribed Assessment: Risk assessment at time of discharge:? Patient was interviewed prior to discharge and found to be fully oriented and without any SI or HI. Patient has improved insight and judgment and wants to continue treatment. Patient is not in imminent risk of harm to self or others and has a safety plan that includes presenting to the closest ER or calling 911 if feeling unsafe.? Patient has been observed closely by nursing and unit staff throughout admission; patient has not engaged in any behaviors that suggest dangerousness to self or others and has demonstrated appropriate behaviors and impulse control
[2023-11-02] MEDS: Mirtazapine 7.5 MG TABLET PO (20:11)
[2023-11-02] MEDS: Acetaminophen 325 MG TABLET 650 MG PO (20:12)
[2023-11-02] MEDS: traZODone HCL 50 MG TABLET PO (22:28)
[2023-11-03] MEDS: Omeprazole 20 MG CAPSULE.DR PO (06:26)
[2023-11-03] MEDS: Gabapentin 300 MG CAPSULE PO (08:27)
[2023-11-03] MEDS: LORazepam 1 MG TABLET PO (08:27)
[2023-11-03] MEDS: Escitalopram Oxalate 20 MG TABLET PO (08:27)
[2023-11-03 08:30] VITALS: BP 115/71; PULSE 70; RESP 16; TEMP 36.8; O2SAT 98
== END 2023-11-03 11:27 | disposition home or self-care (01) | DRG 751 ==
LOC: HO.ED 12:08 → HO.PM5 18:35
PROVIDERS: Physician Assistant Medical; Admitting Provider Registered Nurse; Emergency Provider Student in an Organized Health Care Education/Training Program; PCP Internal Medicine; Visit Provider Psychiatry & Neurology Psychiatry
DX: F33.1 Major depressive disorder, recurrent, moderate (principal); U07.1 COVID-19; R45.851 Suicidal ideations; F84.0 Autistic disorder; F41.9 Anxiety disorder, unspecified; Z79.899 Other long term (current) drug therapy
CPT/HCPCS: 36415; 80053; 80061; 80307; 81001; 83690; 83735; 85025; 87635; 93005; 99285; S9485

== ENCOUNTER → 2023-10-27 11:16 | Outpatient (BNV) | payer BC, SELFPAY | PROVIDERS: Admitting Provider Registered Nurse; Emergency Provider Student in an Organized Health Care Education/Training Program; PCP Internal Medicine; Visit Provider Internal Medicine Cardiovascular Disease | DX: F41.9 Anxiety disorder, unspecified (principal); R45.851 Suicidal ideations | CPT/HCPCS: 93010 ==

== ENCOUNTER → 2023-10-27 18:27 | Outpatient (BNV) | payer BC, SELFPAY | PROVIDERS: Admitting Provider Registered Nurse; Emergency Provider Student in an Organized Health Care Education/Training Program; PCP Internal Medicine; Visit Provider Psychiatry & Neurology Psychiatry | DX: F33.1 Major depressive disorder, recurrent, moderate (principal); F41.9 Anxiety disorder, unspecified | CPT/HCPCS: 90792; 99231; 99239 ==

== ENCOUNTER 2025-07-30 09:33 | Emergency (ER) | payer OTHER, SELFPAY ==
--- NOTE | ~2025-07-30 | US_ITS ---
CLINICAL HISTORY: GB and cbd please US abdomen limited. COMPARISON: None provided. Technique: Real time sonographic imaging, including color-flow imaging, was performed by the popped corn oven attendant. Multiple workforce services representative static images were saved for review. FINDINGS: The gallbladder is normal in size. No cholelithiasis or sludge identified. There is a negative sonographic Gomez's sign. Gallbladder wall: 1-2 mm, normal. Common bile duct: 4 mm, normal. No free intraperitoneal fluid identified. IMPRESSION: 1. No evidence of cholecystitis. No cholelithiasis identified. This document has been electronically signed by: Constantino Byrd MD on 07/30/2025 19:19:55
--- NOTE | 2025-07-30 10:21 | ED.ABDPAIN ---
HPI - Abdominal Pain General Chief Complaint: Abdominal Pain Stated Complaint: shaking, abd pain Time Seen by Provider: 07/30/25 16:58 Source: patient, family (mother), RN notes reviewed and old records reviewed Mode of arrival: ambulatory Limitations: no limitations History of Present Illness ED Provider: Herber HPI narrative: 25-year-old male presents for evaluation of multiple complaints pain He reports that he has been having upper abdominal pain with nausea and vomiting for the last 9 days. He reports he has a known small hiatal hernia and follows with GI for IBS and GERD. He reports today he was unable to keep anything down. He reports feeling increased anxiety. He reports depression with passive suicidality. He denies any plan for suicidality. His mother states that his depression is linked to his physical health and because he does not feel well he has increased anxiety and depression Denies any fevers or chills. No other complaints or concerns with the fine pain The patient has never had any abdominal surgeries Related Data Home Medications ?Medication ?Instructions ?Recorded ?Confirmed citalopram 40 mg tablet 40 mg PO DAILY 10/27/23 10/27/23 gabapentin 300 mg capsule 300 mg PO DAILY 10/27/23 10/27/23 lorazepam 1 mg tablet 1 mg PO BID 10/27/23 10/27/23 omeprazole 20 mg capsule,delayed 20 mg PO DAILY 10/27/23 10/27/23 release Previous Rx's ?Medication ?Instructions ?Recorded mirtazapine 7.5 mg tablet 7.5 mg PO BEDTIME 30 days #30 tabs 11/02/23 ondansetron 4 mg disintegrating 4 mg PO Q8H PRN nausea and 07/30/25 tablet vomiting #20 tabs sucralfate 1 gram tablet (Carafate) 1 g PO BID PRN abdominal pain #20 07/30/25 tabs Allergies Allergy/AdvReac Type Severity Reaction Status Date / Time lactose AdvReac Gastrointestinal Verified 07/30/25 10:26 Upset Review of Systems Constitutional: Denies body ache(s), Denies chills, Denies fever(s), Denies headache(s), Reports malaise and Reports weakness Eyes: Denies blurry vision Denies vertigo, Denies dizziness and Denies headache(s) Cardiovascular: Denies chest pain and Denies dyspnea on exertion Respiratory: Denies cough and Denies dyspnea on exertion Gastrointestinal: Reports abdominal pain, Reports nausea and Reports vomiting Musculoskeletal: Denies back pain Skin/Breast: Denies rash Denies vertigo, Denies dizziness, Denies headache(s) and Reports weakness Psychiatric: Reports anxiety, Reports depression, Denies visual hallucinations, Denies homicidal ideation and Reports suicidal ideation [facility] Past Medical History Medical History (Updated 07/30/25 @ 17:42 by Guy Craven) Anxiety disorder MDD (major depressive disorder), recurrent episode, moderate Social History Social History Household Members: Other Household Members Other:: Mother Housing: House Do you presently have visiting nurse or other home services: No Alcohol intake: never Patient Tobacco Use Status: Never used Tobacco Smoked in Last 30 Days: No Substance Use Type: Marijuana Advance Directives: No Advance Directives Information Provided: No Do you have a plan to hurt others: No Plan service: No Sexual orientation: Straight/Heterosexual Physical Exam ED Vital Signs: Vital Signs - 24 hr 07/30/25 10:22 07/30/25 18:08 07/30/25 20:33 Temperature 98.0 F 98.3 F 97.8 F Pulse Rate 81 75 96 Respiratory Rate 16 16 16 Blood Pressure 133/67 122/69 143/78 H Pulse Oximetry 97 98 100 Oxygen Delivery Method Room Air Room Air Room Air BMI result Body Mass Index 29.5 Const General: healthy appearing, comfortable, no acute distress, alert and awake Nutritional Appearance: well nourished Orientation/consciousness: patient oriented x3 HENMT Head: Yes normocephalic and Yes atraumatic Eyes Eyelids: Yes eyelids normal Conjunctivae: conjunctivae normal Sclerae: sclerae normal Corneas: corneas normal Pupils: Equal, round and reactive pupils present EOM: EOMs intact bilaterally Neck Neck: Yes full ROM Resp Effort & Inspection: normal respiratory effort, able to speak in complete sentences and not labored Cardio Rate: regular rate Rhythm: regular rhythm GI Inspection: No distended Palpation (GI): Soft to palpation, not firm, nontender, no guarding and not rigid Neuro General: patient oriented x3 Cranial nerves: Yes CN's II-XII intact bilaterally, Yes Equal, round and reactive pupils present and Yes Bilaterally intact EOM present Cognition (Neuro): normal cognition Extrem Other: Moving all extremities well without any obvious deformities Course Course Course Narrative: This is a Rapid Medical Exam performed in triage by Ingrid Irwin PA-C. Full HPI, ROS and PE to be performed by primary ED provider. 25 yo M w/pmhx anxiety, MDD presenting to the ED c/o upper abdominal pain and nausea x2 weeks. Decreased PO intake x4 days. Mother also reports shakiness. +chills. Denies fever PE: NAD, nontoxic appearing, abdomen soft w/epigastric ttp Plan: Labs, UA Reevaluation(s) Reevaluation #1: Patient is seen with the care team and does not meet inpatient level of care, he will be provided with outpatient resources. The patient is stable for discharge. We will discharge him with Carafate and Zofran Time: 20:36 Medical Decision Making Medical Decision Making MDM Narrative: 25-year-old male presents for evaluation abdominal pain with depression and suicidal thoughts. Plan for medical clearance, we will treat his nausea, vomiting and pain with IV fluids, pantoprazole and Zofran. Once medically cleared you will likely require a care team consult. His physical exam is quite reassuring, his abdomen is nondistended, soft, and he has vague epigastric tenderness but no rebound or guarding. At this point I think his pain is mostly related to his GERD and likely exacerbated by his anxiety. We are awaiting screening labs. Vitals are stable Differential Diagnosis Differential Diagnoses: The differential diagnosis associated with the presentation includes GERD Hiatal hernia IBS Abdominal pain Depression Suicidal ideation Mood disorder Admission/Observation Consideration of admission/observation: Escalation of care including admission/observation considered Lab Data 07/30/25 10:43 07/30/25 17:26 Labs: Lab Results 07/30/25 07/30/25 Range/Units 10:43 17:26 WBC 7.5 (4.8-10.8) X10*3/uL RBC 5.71 (4.60-5.80) X10*6/uL Hgb 15.5 (14.0-18.0) g/dl Hct 47.0 (42.0-52.0) % MCV 82.3 (80.0-98.0) fL MCH 27.1 (27.0-33.0) pg MCHC 33.0 (31.0-36.0) g/dl RDW 17.0 H (11.0-16.0) % Plt Count 181 (160-400) X10*3/uL MPV 11.1 (9.4-12.4) fL Immature Gran % (Auto) 0.3 (0.0-0.4) % Neut % (Auto) 70.6 (45-73) % Lymph % (Auto) 19.6 L (20-40) % Barrow % (Auto) 9.2 (2-11) % Eos % (Auto) 0.0 (0-4) % Baso % (Auto) 0.3 (0-2) % Lymph # (Auto) 1.5 (1.2-4.9) X10*3/uL Barrow # (Auto) 0.7 (0.1-1.2) X10*3/uL Eos # (Auto) 0.0 (0.0-0.4) X10*3/uL Baso # (Auto) 0.0 (0.0-0.2) X10*3/uL Abs Immat Gran (auto) 0.02 (0.00-0.03) X10*3/uL Absolute Neuts (auto) 5.3 (2.0-8.3) x10*3/uL Absolute Nucleated RBC 0.000 (0.0-0.012) X10*3/uL Nucleated RBC % (auto) 0.0 (0.0-0.2) /100WBC Sodium 142 (135-145) mmol/L Potassium 3.3 (3.3-5.1) mmol/L Chloride 108 (96-108) mmol/L Carbon Dioxide 20 L (22-29) mmol/L Anion Gap 17 (12-20) BUN 11 (9-16) mg/dL Creatinine 1.04 (0.5-1.4) mg/dL Estim Creat Clear Calc 107.8 Estimated GFR > 60 Random Glucose 97 (60-115) mg/dL Calcium 10.0 (8.4-10.2) mg/dL Magnesium 2.3 (1.6-2.6) mg/dL Total Bilirubin 1.8 H (0.0-1.0) mg/dL Direct Bilirubin 0.5 (0.0-0.5) mg/dL AST 36 (5-37) U/L ALT 47 H (0-40) U/L Alkaline Phosphatase 83 (39-117) U/L Total Protein 8.4 H (6.5-8.0) g/dL Albumin 5.6 H (3.5-5.0) g/dL Lipase 32 (8-78) U/L Ethyl Alcohol < 10 mg/dL Influenza Type A (PCR) NEGATIVE (Negative) Influenza Type B (PCR) NEGATIVE (Negative) RSV RNA Qual (PCR) NEGATIVE (Negative) SARS-CoV-2 RNA (RT-PCR) NEGATIVE (Negative) Medications Administered Discontinued Medications Generic Name Dose Route Start Last Admin Trade Name Freq PRN Reason Stop Dose Admin Droperidol 1.25 mg 07/30/25 19:25 07/30/25 20:32 Droperidol 5 Mg/2 Ml Vial IVPUSH 07/30/25 19:26 1.25 mg ONCE ONE Administration Lactated Ringer's 1,000 mls @ 999 mls/hr 07/30/25 17:15 07/30/25 17:44 Lr IV 07/30/25 18:15 999 mls/hr .Q1H1M VIKRAM Administration Midazolam HCl 2 mg 07/30/25 17:11 07/30/25 17:31 Midazolam Hcl 2 Mg/2 Ml Vial IVPUSH 07/30/25 17:12 2 mg ONCE ONE Administration Ondansetron HCl 4 mg 07/30/25 17:11 07/30/25 17:49 Ondansetron Hcl 4 Mg/2 Ml Vial IVPUSH 07/30/25 17:12 4 mg ONCE ONE Administration Pantoprazole Sodium 40 mg 07/30/25 17:13 07/30/25 17:49 Pantoprazole Sodium 40 Mg/10 Ml Vial IVPUSH 07/30/25 17:14 40 mg ONCE ONE Administration Sucralfate 1 gm 07/30/25 19:25 07/30/25 20:29 Sucralfate Oral Suspension 1 Gm/10 Ml Oral.Susp PO 07/30/25 19:26 1 gm ONCE ONE Administration Discharge Plan Discharge Clinical Impression: Abdominal pain, Vomiting, Depression Patient Disposition: Home, Self-Care Instructions: Acute Nausea and Vomiting (ED), Abdominal Pain (ED) Additional Instructions: Your workup in the ER today was reassuring. You may take Carafate as needed for abdominal pain and Zofran for nausea and vomiting. Follow up with your primary doctor as well as your GI doctor. Return for new or worsening symptoms Prescriptions: New ondansetron 4 mg tablet,disintegrating 4 mg PO Q8H PRN (Reason: nausea and vomiting) Qty: 20 0RF sucralfate [Carafate] 1 gram tablet 1 g PO BID PRN (Reason: abdominal pain) Qty: 20 0RF No Action citalopram 40 mg tablet 40 mg PO DAILY gabapentin 300 mg capsule 300 mg PO DAILY omeprazole 20 mg capsule,delayed release(DR/EC) 20 mg PO DAILY lorazepam 1 mg tablet 1 mg PO BID mirtazapine 7.5 mg Tablet 7.5 mg PO BEDTIME 30 Days Qty: 30 0RF Print Language: Bahraini
[2025-07-30 10:22] VITALS: BP 133/67; PULSE 81; RESP 16; TEMP 36.7; O2SAT 97; BMI 29.5
[2025-07-30 10:51] LABS: MANUAL DIFF FLAG NO
[2025-07-30 10:58] LABS: Hematocrit 47.0 % (42.0-52.0); Hemoglobin 15.5 g/dl (14.0-18.0); Imm Gran Abs Auto 0.02 X10*3/uL (0.00-0.03); Imm Gran Pct Auto 0.3 % (0.0-0.4); Lymphocytes Absolute Auto 1.5 X10*3/uL (1.2-4.9); Mean Corpuscular HGB Conc 33.0 g/dl (31.0-36.0); Mean Corpuscular Hemoglobin 27.1 pg (27.0-33.0); Mean Corpuscular Volume 82.3 fL (80.0-98.0); NRBC Abs Auto 0.000 X10*3/uL (0.0-0.012); NRBC Pct Auto 0.0 /100WBC (0.0-0.2); Platelet Count 181 X10*3/uL (160-400); Red Blood Count 5.71 X10*6/uL (4.60-5.80); White Blood Count 7.5 X10*3/uL (4.8-10.8)
[2025-07-30 11:35] LABS: Resp Syncy Virus RNA Qual PCR NEGATIVE (Negative); SARS COV2 PCR INHOUSE NEGATIVE (Negative)
[2025-07-30] MEDS: Lactated Ringers 1,000 ML 999 ML IV (17:44)
[2025-07-30 17:48] LABS: Alanine Aminotransferase 47 U/L (0-40); Albumin Level 5.6 g/dL (3.5-5.0); Alkaline Phosphatase 83 U/L (39-117); Anion Gap 17 (12-20); Aspartate Amino Transferase 36 U/L (5-37); Blood Urea Nitrogen 11 mg/dL (9-16); Calcium 10.0 mg/dL (8.4-10.2); Carbon Dioxide 20 mmol/L (22-29); Chloride 108 mmol/L (96-108); Creatinine Clr Calc Pharmacy 107.8; Estimated Glomerular Filt Rate > 60; Lipase 32 U/L (8-78); Magnesium 2.3 mg/dL (1.6-2.6); Potassium 3.3 mmol/L (3.3-5.1); Sodium 142 mmol/L (135-145); Total Protein 8.4 g/dL (6.5-8.0)
[2025-07-30 18:08] VITALS: BP 122/69; PULSE 75; RESP 16; TEMP 36.8; O2SAT 98
--- OUTSIDE RECORDS SUMMARY | 2025-07-30 19:09 | XMS_ITS | Clinical Summary ---
Author Organization [facility] Address [address] [place] [id number] Phone Care Team Providers Care Mechanic'S Assistant Name Role Phone Joey Hylton MD Primary Care Provider [phone] Allergies No known active allergies Medications citalopram 20 MG tabletIndicatio ns:Generalized anxiety disorder Take 1.5 tablets (30 mg total) by mouth daily. 135 tablet 3 9 Active Additional Information Patient taking differently: 40 mgOral Daily, Reported on 03/24/2020 LORazepam 1 MG tabletIndicatio ns:Sleep disorder Take 1 tablet (1 mg total) by mouth nightly for 20 days. 20 tablet 0 Active LORazepam 1 MG tabletIndicatio ns:Generalized anxiety disorder Take 1 tablet (1 mg total) by mouth every 6 (six) hours as needed for anxiety for up to 10 days. 30 tablet 0 Active citalopram (CeleXA) 40 MG tabletIndicatio ns:Generalized anxiety disorder Take 1 tablet (40 mg total) by mouth every morning. 30 tablet 2 0 Active Active Problems Problem Noted Date Diagnosed Date Sleep disorder 07/18/2018 Assessment & Plan (03/15/2019 2:10 PM EDT): If he really is getting to sleep at midnight and waking at 8 am, then he is getting adequate sleep. He does not, however. feel rested. I do still suggest to not get to bed until he is ready to fall asleep (I.e. Midnight, if he is going to wake at 8 am). Read a book before bed about 1 hr prior to get into the mood for sleep. Not video games. He can continue with the beneryl. I do feel that the counseling will be helpful for sleep eventually. He stands all day. That's not really exercise. I suggest to continue with Zahida Dawson,. Assessment & Plan (10/12/2018 12:03 PM EDT): Thomas's sleep schedule is chaotic. I have explained this to him. He does not need lorazepam for sleep, he needs to go to bed consistently and wake up consistently at the same time for 8 hrs of sleep, and not take naps. He could take melatonin to get into this cycle. He does not seem willing to change at this point in time. I will see him back in November for his PE. Assessment & Plan (08/28/2018 11:04 AM EST): He tried trazodone for sleep, but it made him stuffy. He has been the ativan for sleep. Clonidine side effects made his fingers and toes tingly. Lightheaded. Has been taking melatonin. Other constipation 12/22/2017 Overview (02/09/2018): Other constipation (564.09) Onset: 12/22/2017 Added by: Joey Hylton Assessment & Plan (02/09/2018 11:59 AM EDT): Still with constipation, he has a very limited diet. He eats bananas and watermelon and vegetables: mini cucumber, corn, carrots, but still limited, Increase miralax daily or twice daily, f/u in 3 weeks Generalized anxiety disorder 03/22/2011 Overview (02/09/2018): Anxiety, generalized (300.02) Onset: 03/22/2011 Added by: Belle Huggins Assessment & Plan (03/15/2019 2:07 PM EDT): He continues on celexa 30 mg. He is feeling well, not depressed or sad, but does have anxiety and stress with work. He is taking the lorazapem almost daily. I feel he needs to get off of this soon or perhaps he might be having rebound and that is what is affecting his sleep. Suggested to call [facility] for some real counselor advice. Assessment & Plan (10/12/2018 12:02 PM EDT): He feels he is doing well on the celexa at 30 mg. He sometimes get panic attacks, so we will continue lorazepam prn, but hopefully will need it less and less. Assessment & Plan (04/07/2018 10:53 AM EDT): We are going to stay at this dose of celexa. It is working for him. Assessment & Plan (03/02/2018 12:10 PM EDT): Thomas has improved by my estimations. He did have some issue at work. Belly pain is better. Still some anxiety. Using the lorazepam a lot from work. Assessment & Plan (02/09/2018 12:00 PM EDT): We will do celexa, 10 mg for 1 week and then double to 20 mg, and recheck in 3 weeks Immunizations Immunization Administration Dates Next Due DTaP 5 07/05/2003, 0,01/16/1999,11/14,1998 HPV, Quadrivalent 05/23/2014,01/21/2014,11/13/19 14 Hep A, ped/adol 12/22/2015,11/12/2013 Hep B, ped/adol 01/16/1999,1998,1998 Hib (PRP-T) 10/07/1999, 9,1998,09/05 IPV 07/05/2003, 0,1998,09/05 Influenza, injectable, MDCK, preservative free, quadrivalent 05/19/2018 Influenza, injectable, quadr ivalent, preservative free 05/27/2020,05/14/2019,05/19/2018,07/01 Influenza, injectable, triva lent, preservative free 06/13/2012,06/12/2011 MMR 07/05/2003,07/06/1999 Meningococcal Conj (Menactra) MCV4P 11/14/2014,0 09/28/2010 Tdap 09/28/2010 Varicella 09/28/2010,07/06/1999 Family History Medical History Relation Name Comments Heart disease Father Betina Hypertension Mother Nena Relation Name Status Comments Father Betina Alive Mother Nena Alive Social History Tobacco Use Types Packs/Day Years Used Date Smoking Tobacco: Never Smokeless Tobacco: Never Tobacco Cessation:Counseling Given: No Comments:Never Smoker Alcohol Use Standard Drinks/Week Comments Never 0 (1 standard drink = 0.6 oz pur e alcohol) Hunger/Food Answer Date Recorded No 04/26/2020 Stable Housing Answer Date Recorded No 04/26/2020 Transportation Concerns Answer Date Rec orded No 04/26/2020 Hazards in Home Answer Date Recorded No 06/16/2020 Financing Utilities Answer Date Recorde d No 06/16/2020 Safety at Home Answer Date Recorded No 06/16/2020 Outside Support Answer Date Recorded No 06/16/2020 Understanding Health Concerns Answer Da te Recorded No 06/16/2020 Financing Health Concerns Answer Date R ecorded No 06/16/2020 Missing School or Work Answer Date Bonilla rded No 06/16/2020 Sex and Gender Information Value Date Recorded Sex Assigned at Not on file Legal Sex Male 6:41 PM EDT Gender Identity Not on file Sexual Orientation Not on file Last Filed Vital Signs Vital Sign Reading Time Taken Comments Blood Pressure 100/60 05/27/2020 11:17 AM EDT Pulse 96 05/27/2020 11:17 AM EDT Temperature 36.8 C (98.3 F) 05/27/2020 11:17 AM EDT Respiratory Rate - - Oxygen Saturation - - Inhaled Oxygen Concentration - - Weight 49.5 kg (109 lb 1.6 oz) 05/27/2020 11:17 AM EDT Height 166.4 cm (5' 5.5 ) 05/27/2020 11:17 AM ED T Body Mass Index 17.88 05/27/2020 11:17 AM EDT Plan of Treatment Health Maintenance Due Date Last Done Comments DTaP,Tdap,and Td Vaccines (7 - Td or Tdap) 09/28/2020 09/28/2010, 07/05/2003, 01/11/2000, Additional history exists Influenza Vaccines (#1) 2025 05/27/20 20, 05/14/2019, 05/19/2018, Additional history exists COVID-19 Vaccine ( season) 2025 Hepatitis B Vaccines Completed 01/16/1999, 1998, 1998 HIB Vaccines Completed 10/07/1999, 12/30, 1998, Additional history exists IPV Vaccines Completed 07/05/2003, 12/30, 1998, Additional history exists MMR Vaccines Completed 07/05/2003, 07/06/1999 Varicella Vaccines Completed 09/28/2010, 07/06/1999 HPV Vaccines Completed 05/23/2014, 12/31, 11/12/2013 Meningococcal Vaccine Completed 11/14/2014, 011 Hepatitis A Vaccines Completed 12/22/2015, 11/13/19 14 Men B Vaccine Aged Out No longer elig ible based on patient's age to complete this topic Pneumococcal Vaccine Aged Out No long er eligible based on patient's age to complete this topic Insurance * Guarantor: NENA ARNOLD Account Type Relation to Patient Date of Phone Billing Address Personal/Family Mother 1963 [address] JAYME CABALLERO [id number] [facility] HMO Care Teams Mechanic'S Assistant Relationship Specialty Start Date End Date Joey Hylton MD [address] [place] [address] [place] [address] PCP - General 12/07/17
--- OUTSIDE RECORDS SUMMARY | 2025-07-30 19:09 | XMS_ITS | Encounter Summary ---
Author Organization [facility] Address [address] [place] [phone] Phone Care Team Providers Care Customer Care Specialist Name Role Phone Joey Hylton MD Primary Care Provider [phone] Encounter Details Date Type Department Care Team (Late st Contact Info) Description 12/16/2010 Conversion Encounter [facility] [address] [place] [address] Social History Tobacco Use Types Packs/Day Years Used Date Smoking Tobacco: Never Assessed Sex and Gender Information Value Date Recorded Sex Assigned at Not on file Legal Sex Male 6:41 PM EDT Gender Identity Not on file Sexual Orientation Not on file documented as of this encounter Plan of Treatment Not on file documented as of this encounter Visit Diagnoses Not on filedocumented in this encounter Care Teams Customer Care Specialist Relationship Specialty Start Date End Date Joey Hylton MD [facility] [place] [address] PCP - General 12/07/17 documented as of this encounter
--- NOTE | 2025-07-30 19:26 | ECG_ITS ---
Test Reason : ELVAUATE QT Blood Pressure : */* mmHG Vent. Rate : 83 BPM Atrial Rate : 83 BPM P-R Int : 150 ms QRS Dur : 84 ms QT Int : 400 ms P-R-T Axes : 29 58 56 degrees QTcB Int : 470 ms Normal sinus rhythm Normal ECG When compared with ECG of 27-Oct-2023 11:44, No significant change was found Referred By: Guy Craven Electronically Signed By: MAMIE SALES
[2025-07-30] MEDS: Sucralfate Oral Suspension 1 GM/10 ML ORAL.SUSP PO (20:29)
[2025-07-30 20:33] VITALS: BP 143/78; PULSE 96; RESP 16; TEMP 36.6; O2SAT 100
[2025-07-30 21:26] VITALS: BP 143/78; PULSE 96; RESP 16; TEMP 36.6; O2SAT 100
== END 2025-07-30 21:27 | disposition home or self-care (01) ==
PROVIDERS: Physician Assistant; Emergency Provider Emergency Medicine; PCP Internal Medicine
DX: F33.1 Major depressive disorder, recurrent, moderate (principal); F41.9 Anxiety disorder, unspecified; R10.10 Upper abdominal pain, unspecified; R11.2 Nausea with vomiting, unspecified; Z79.899 Other long term (current) drug therapy; Z03.818 Encounter for observation for suspected exposure to other biological agents ruled out
CPT/HCPCS: 36415; 76705; 80048; 80076; 80307; 83690; 83735; 85025; 87637; 93005; 96361; 96374; 96375; 99285; J1790; J2250; J2405; J2470; J7120; S9485

== ENCOUNTER → 2025-07-30 17:52 | Outpatient (BNV) | payer OTHER, SELFPAY | PROVIDERS: Emergency Provider Emergency Medicine; PCP Internal Medicine; Visit Provider Radiology Diagnostic Radiology | DX: Z03.89 Encounter for observation for other suspected diseases and conditions ruled out (principal) | CPT/HCPCS: 76705 ==

== ENCOUNTER → 2025-07-30 19:26 | Outpatient (BNV) | payer OTHER, SELFPAY | PROVIDERS: Emergency Provider Emergency Medicine; PCP Internal Medicine; Visit Provider Internal Medicine | DX: Z13.6 Encounter for screening for cardiovascular disorders (principal) | CPT/HCPCS: 93010 ==